=== PATIENT | male | born 1950 | race Caucasian/White ===

== ENCOUNTER 2020-07-17 15:10 | Outpatient (REF) | payer MEDICARE, MEDICAID, SELFPAY | END 2020-07-17 15:11 | disposition home or self-care (01) | LOC: HO.LAB 15:10 | PROVIDERS: Visit Provider Nurse Practitioner Family | DX: R05 Cough (principal); R42 Dizziness and giddiness; Z20.822 Contact with and (suspected) exposure to COVID-19 | CPT/HCPCS: 36415; U0003; U0005 ==

== ENCOUNTER 2021-01-21 11:47 | Outpatient (REF) | payer MEDICARE, MEDICAID, SELFPAY ==
[2021-01-21 13:31] LABS: Alanine Aminotransferase 28 U/L (0-40); Albumin Level 4.3 g/dL (3.5-5.0); Alkaline Phosphatase 80 U/L (39-117); Anion Gap 11 (12-20); Aspartate Amino Transferase 20 U/L (5-37); Bilirubin Total 0.7 mg/dL (0.0-1.0); Blood Urea Nitrogen 13 mg/dL (9-16); Calcium 9.6 mg/dL (8.4-10.2); Carbon Dioxide 26 mmol/L (22-29); Chloride 107 mmol/L (96-108); Estimated Glomerular Filt Rate > 60; Glucose Fasting 96 mg/dL (60-99); Potassium 4.9 mmol/L (3.3-5.1); Sodium 139 mmol/L (135-145); Total Protein 6.6 g/dL (6.5-8.0)
[2021-01-21 13:51] LABS: Prostate Specific Antigen 0.82 ng/mL (<0.05-4.0)
== END 2021-01-21 11:48 | disposition home or self-care (01) ==
LOC: HO.LAB 11:47
PROVIDERS: PCP Internal Medicine; Visit Provider Nurse Practitioner Family
DX: Z13.1 Encounter for screening for diabetes mellitus (principal); Z12.5 Encounter for screening for malignant neoplasm of prostate
CPT/HCPCS: 36415; 80053; 84153

== ENCOUNTER 2021-02-12 09:02 | Outpatient (REF) | payer MEDICARE, MEDICAID, SELFPAY | END 2021-02-12 09:03 | disposition home or self-care (01) | LOC: HO.LAB 09:02 | PROVIDERS: PCP Internal Medicine; Visit Provider Internal Medicine | DX: Z20.822 Contact with and (suspected) exposure to COVID-19 (principal) | CPT/HCPCS: C9803; U0003; U0005 ==

== ENCOUNTER 2021-06-04 21:59 | Emergency (ER) | payer MEDICARE, MEDICAID, SELFPAY ==
--- NOTE | ~2021-06-04 | CT_ITS ---
EXAMINATION: CT HEAD WITHOUT CONTRAST CLINICAL INFORMATION: Fall, hit head COMPARISON: 11/29/2015 TECHNIQUE: Contiguous axial imaging was performed from the skull base to vertex without intravenous administration of contrast. This CT examination was performed using dose optimization techniques as appropriate, variously including the following: *Automated exposure control *Adjustment of mA and/or kV according to patient size (this includes techniques or standardized protocols for targeted exams where dose is matched to indication/reason for exam; i.e. extremities or head) *Use of iterative reconstruction technique DLP: 782 mGy-cm FINDINGS: There is no evidence of acute intracranial hemorrhage or territorial infarction. No abnormal mass effect or midline shift is seen. Gambino to white matter differentiation is well preserved. No extra-axial fluid collections are identified. The lateral and third ventricles remain prominent in size, similar to prior. There is no abnormal attenuation within the brain parenchyma. The osseous structures and soft tissues are normal. The mastoid air cells and visualized portions of the paranasal sinuses are well aerated. CT/CT head/brain wo con IMPRESSION: No new acute intracranial pathology. Prominent lateral and third ventricles again noted, similar to prior and which could represent hydrocephalus.
[2021-06-04 22:11] VITALS: BMI 24.7
[2021-06-04 22:14] VITALS: BP 140/80; PULSE 73; RESP 16; TEMP 36.8; O2SAT 98
--- NOTE | 2021-06-04 23:30 | ED_ITS ---
HPI - Fall General Chief Complaint: Fall Stated Complaint: Fall Time Seen by Provider: 06/04/21 22:49 Source: patient Limitations: no limitations and language barrier (History obtained via [facility], [facility] volunteer assistant) History of Present Illness HPI Narrative: This is a 71-year-old male who was going to take a bath or shower, and had put his left foot in the tub when it slipped out to the side and the patient fell, hitting the back of his head. The patient complains of headache that began in the back of his head and now was toward the front. The headache is now mild. He denies loss of consciousness. He denies nausea vomiting. Denies any neck pain. Denies any numbness or weakness in his arms or legs. Denies any injury, denies any left hip or leg pain. He does have mild pain to his right knee, on which he put an elastic brace. The patient states that he is on a blood thinner but cannot specify which 1 or for what reason Related Data Home Medications Medication Instructions Recorded Confirmed amantadine HCl 100 mg capsule 100 mg PO BID 07/02/20 01/01/21 calcium carbonate 600 mg-vitamin 1 tab PO DAILY 07/02/20 01/01/21 D3 5 mcg (200 unit) tablet memantine 10 mg tablet 10 mg PO BID 07/02/20 01/01/21 quetiapine 25 mg tablet mg PO 07/02/20 01/01/21 sertraline 100 mg tablet 100 mg PO QAM 07/02/20 01/01/21 Previous Rx's Medication Instructions Recorded trazodone 50 mg tablet 50 mg PO BEDTIME PRN 90 Days #90 04/04/20 tab aspirin 81 mg tablet,delayed 81 mg PO DAILY 90 Days #90 tab 07/17/20 release (Adult Aspirin Regimen) docusate sodium 100 mg capsule 100 mg PO DAILY PRN 90 Days #90 cap 07/17/20 tamsulosin 0.4 mg capsule 0.4 mg PO DAILY #90 cap 09/02/20 cyclobenzaprine 10 mg tablet 10 mg PO TID 30 Days #90 tab 02/24/21 levothyroxine 137 mcg tablet 137 mcg PO DAILY 90 Days #90 tab 03/04/21 brimonidine 0.2 % eye drops 1 drp OPHTHALMIC (EYE) Q8H #5 ml 03/06/21 dorzolamide 22.3 mg-timolol 6.8 1 drp OPHTHALMIC (EYE) BID 30 Days 03/06/21 mg/mL eye drops #10 ml latanoprost 0.005 % eye drops 1 drp OPHTHALMIC (EYE) BEDTIME 30 03/06/21 Days #2.5 ml lisinopril 10 mg tablet 10 mg PO DAILY #90 tab 04/25/21 atorvastatin 20 mg tablet 20 mg PO DAILY #90 cap 05/22/21 Allergies Allergy/AdvReac Type Severity Reaction Status Date / Time No Known Allergies Allergy Verified 01/01/21 14:25 [No Known Allergies*] Review of Systems Review of Systems: Yes all other systems are reviewed and are negative Constitutional: Constitutional: Reports as per HPI, Denies fever(s) and Reports headache(s) Eyes: Eyes: Reports as per HPI and Reports no additional eye complaints ENT: Reports system reviewed and no additional complaints, except as documented, Reports as per HPI, Reports headache(s), Denies nasal congestion, Denies nasal discharge and Denies sore throat Cardiovascular: Cardiovascular: Reports as per HPI, Denies chest pain and Denies dyspnea Respiratory: Respiratory: Reports as per HPI, Denies cough and Denies dyspnea Gastrointestinal: Gastrointestinal: Reports as per HPI, Denies abdominal pain, Denies diarrhea and Denies vomiting Genitourinary: Genitourinary: Reports as per HPI, Denies hematuria, Denies dysuria and Denies urinary frequency Musculoskeletal: Musculoskeletal: Reports as per HPI, Denies numbness and Reports other (Right knee pain) Integumentary/Breasts: Skin/Breast: Reports as per HPI and Denies rash Neurologic: Reports as per HPI, Reports headache(s), Denies focal weakness, Denies numbness and Denies Sensory deficit (Neuro) Psychiatric: Psychiatric: Reports no additional psychiatric complaints and Reports as per HPI Endocrine: Endocrine: Reports no additional endocrine complaints and Reports as per HPI Hematologic/Lymphatic: Hematologic/Lymphatic: Reports no additional rudi tologic/lymphatic complaints, Reports as per HPI and Reports other (No peripheral edema) [facility] Past Medical History Medical History (Updated 06/05/21 @ 00:26 by Brenden Coe MD) Cough Dizziness Essential hypertension Glaucoma Hearing loss Insomnia Long-term use of aspirin therapy Screening for diabetes mellitus Screening for prostate cancer Surgical History (Updated 01/01/21 @ 14:54 by ERIN Castillo) History of biopsy History of colonoscopy Family History Family History Father Prostate cancer Mother Chronic mental illness Maternal Aunt Diabetes Hypertension Maternal Uncle Diabetes Hypertension Sister Liver failure Family/Other Chronic mental illness Brother No problems noted. Social History Social History (Updated 01/01/21 @ 14:27 by ERIN Castillo) Alcohol intake: never Patient Tobacco Use Status: Former Tobacco user Advance Directives: No Advance Directives Information Provided: Yes Physical Exam Vital Signs: Vital Signs: Last Vital Signs Temp 98.3 F 06/04/21 22:14 Pulse 98 06/05/21 00:32 Resp 16 06/05/21 00:32 BP 140/92 H 06/05/21 00:32 Pulse Ox 96 06/05/21 00:32 BMI result Body Mass Index 24.7 Const: General: cooperative, no acute distress and alert Orientation/consciousness: patient oriented x3 HENMT: Head: Yes normal to inspection Eyes: General: appearance normal, both eyes and all related structures Eyelids: Yes eyelids normal Conjunctivae: conjunctivae normal Pupils: Equal, round and reactive pupils present Neck: Neck: Yes normal visual inspection and Yes supple Chest: Chest palpation & inspection: normal inspection of the chest Resp: Effort & Inspection: normal respiratory effort Auscultation: clear to auscultation bilaterally Cardio: Rate: regular rate Rhythm: regular rhythm Heart sounds: S1 normal heart sound present, S2 normal heart sound present, no gallops, no murmurs and no rubs GI: Palpation (GI): Soft to palpation, nontender and Other GI palpation findings present (Non-distended) Auscultation: normal bowel sounds Skin: General skin exam: no rashes or lesions noted Neuro: General: patient oriented x3, no focal motor deficits and CN's II-XI intact bilaterally Cranial nerves: Yes Equal, round and reactive pupils present Cognition (Neuro): normal cognition Motor exam (neuro): 5/5 motor strength present throughout Sensory Exam: No Sensory deficit (Neuro) Extrem: Other: Right knee without any evidence of trauma, no effusion, no ecchymosis, no deformity, full range of motion, no point tenderness General: Yes normal to inspection and Yes no pedal edema Psych: Appearance: grossly normal Affect: normal affect MDM - Fall MDM Narrative Medical decision making narrative: Patient with the minor head injury after a fall. Patient is on aspirin, unclear he is on any other blood thinners. CT of the brain/head negative. No neck pain. No other significant injury. Patient is safe for outpatient follow-up, can take acetaminophen for pain. Imaging Data CT scan - head: Radiologist's impression: IMPRESSION: No new acute intracranial pathology. Prominent lateral and third ventricles again noted, similar to prior and which could represent hydrocephalus. Discharge Plan Discharge Clinical Impression: Head injury Patient Disposition: Home, Self-Care Instructions: Head Injury (ED) Additional Instructions: Use acetaminophen for pain as needed. Continue other current medications. Return for any new or worsening symptoms. Follow up with your primary care physician as needed Prescriptions: No Action trazodone 50 mg tablet 50 mg PO BEDTIME PRN (Reason: sleep) 90 Days Qty: 90 RF: 3 aspirin [Adult Aspirin Regimen] 81 mg tablet,delayed release (DR/EC) 81 mg PO DAILY 90 Days Qty: 90 RF: 3 docusate sodium 100 mg capsule 100 mg PO DAILY PRN (Reason: constipation) 90 Days Qty: 90 RF: 3 tamsulosin 0.4 mg capsule 0.4 mg PO DAILY Qty: 90 RF: 0 cyclobenzaprine 10 mg tablet 10 mg PO TID 30 Days Qty: 90 RF: 1 levothyroxine 137 mcg tablet 137 mcg PO DAILY 90 Days Qty: 90 RF: 1 brimonidine 0.2 % drops 1 drp ophthalmic (eye) Q8H Qty: 5 RF: 0 dorzolamide-timolol 22.3-6.8 mg/mL drops 1 drp ophthalmic (eye) BID 30 Days Qty: 10 RF: 1 latanoprost 0.005 % drops 1 drp ophthalmic (eye) BEDTIME 30 Days Qty: 2.5 RF: 0 lisinopril 10 mg tablet 10 mg PO DAILY Qty: 90 RF: 0 atorvastatin 20 mg tablet 20 mg PO DAILY Qty: 90 RF: 3 calcium carbonate-vitamin D3 600 mg(1,500mg) -200 unit tablet 1 tab PO DAILY RF: 0 memantine 10 mg tablet 10 mg PO BID RF: 0 amantadine HCl 100 mg capsule 100 mg PO BID RF: 0 quetiapine 25 mg tablet PO RF: 0 sertraline 100 mg tablet 100 mg PO QAM RF: 0 Interventions: ED Discharge Assessment Last Done: 06/05/21 01:55 Discharge Date/Time: 06/05/21 01:56
[2021-06-05] MEDS: Acetaminophen 325 MG TABLET 650 MG PO
[2021-06-05 00:32] VITALS: BP 140/92; PULSE 98; RESP 16; O2SAT 96
== END 2021-06-05 01:56 | disposition home or self-care (01) ==
PROVIDERS: Emergency Provider Emergency Medicine; PCP Internal Medicine
DX: S09.90XA Unspecified injury of head, initial encounter (principal); W18.2XXA Fall in (into) shower or empty bathtub, initial encounter; Y93.E1 Activity, personal bathing and showering; Y92.012 Bathroom of single-family (private) house as the place of occurrence of the external cause; Y99.9 Unspecified external cause status; Z79.82 Long term (current) use of aspirin; I10 Essential (primary) hypertension
CPT/HCPCS: 70450; 99284

== ENCOUNTER 2022-05-07 15:37 | Outpatient (REF) | payer MEDICARE, MEDICAID, SELFPAY ==
--- NOTE | ~2022-05-07 | XR_ITS ---
EXAMINATION: XR KNEE, RIGHT CLINICAL INFORMATION: Right knee pain COMPARISON: None TECHNIQUE: AP and lateral of the right knee. FINDINGS: Small marginal osteophytes are evident at the patella and medial compartment. Joint spaces appear relatively well-preserved. No fracture or malalignment. No joint effusion. Enthesopathic spurring is present at the patellar tendon insertion on the tibial tuberosity. XR/XR knee RT 2V IMPRESSION: Minimal medial and patellofemoral compartment osteoarthritis. No acute osseous findings.
[2022-05-07 18:10] LABS: Alanine Aminotransferase 15 U/L (0-40); Albumin Level 4.5 g/dL (3.5-5.0); Alkaline Phosphatase 85 U/L (39-117); Anion Gap 9 (12-20); Aspartate Amino Transferase 19 U/L (5-37); Bilirubin Total 1.1 mg/dL (0.0-1.0); Blood Urea Nitrogen 13 mg/dL (9-16); Calcium 9.9 mg/dL (8.4-10.2); Carbon Dioxide 29 mmol/L (22-29); Chloride 103 mmol/L (96-108); Cholesterol 224 mg/dL; Estimated Glomerular Filt Rate > 60; Glucose Fasting 75 mg/dL (60-99); HDL Cholesterol 41 mg/dL; LDL Cholesterol Calculated 163 mg/dl; Potassium 4.6 mmol/L (3.3-5.1); Sodium 136 mmol/L (135-145); Thyroid Stimulating Hormone 0.75 uIU/mL (0.32-4.0); Total Protein 7.2 g/dL (6.5-8.0); Triglycerides 101 mg/dL
== END 2022-05-07 15:38 | disposition home or self-care (01) ==
LOC: HO.LAB 15:37
PROVIDERS: PCP Internal Medicine; Visit Provider Internal Medicine
DX: M25.561 Pain in right knee (principal); E03.9 Hypothyroidism, unspecified; E78.5 Hyperlipidemia, unspecified; I10 Essential (primary) hypertension
CPT/HCPCS: 36415; 73560; 80053; 80061; 84443

== ENCOUNTER 2022-10-16 09:23 | Outpatient (REF) | payer OTHER, SELFPAY ==
--- NOTE | ~2022-10-16 | FL_ITS ---
EXAMINATION: FL BARIUM SWALLOW CLINICAL INFORMATION: Dysphagia. COMPARISON: None available. TECHNIQUE: Barium swallow examination was performed using fluoroscopic evaluation in addition to multiple fluoroscopic spot views. The patient is imaged both upright and prone and using both thick and thin sulfate along with effervescent granules. Fluoroscopy Time: 1.9 minutes DAP: 9.626 Gycm2 Images: 44 FINDINGS: Following oral administration of thick barium and barium-coated turkey in the upright view, there is normal propagation of the bolus from the oral cavity through the pharynx, esophagus into the stomach without any evidence of obstruction, narrowing or stricture. No laryngeal penetration or aspiration is seen. On placing the patient prone lying and oral administration of thin barium, there is good distention of the entire esophagus without intraluminal filling defect or extrinsic compression. No obstruction is seen. Please note the patient has a significantly large volume of bolus during every oral intake. FL/FL barium swallow IMPRESSION: Unremarkable barium swallow in the upright and lying positions.
== END 2022-10-16 09:24 | disposition home or self-care (01) ==
LOC: HO.XRAY 09:23
PROVIDERS: PCP Internal Medicine; Visit Provider Internal Medicine
DX: R13.10 Dysphagia, unspecified (principal)
CPT/HCPCS: 74220

== ENCOUNTER 2022-12-22 13:58 | Outpatient (AMB) | payer MEDICARE, SELFPAY ==
[2022-12-22 14:00] VITALS: BP 98/80; BMI 26.2
--- NOTE | 2022-12-22 14:00 | A.OFFPC_ITS ---
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 Required: No Accompanied by: Sister Allergies No Known Allergies [No Known Allergies*] Allergy (Verified 12/22/22 14:06) Medication List - Last Reconciled 12/22/22 by Dea Serrano MD aspirin (Adult Aspirin Regimen) 81 mg PO DAILY 90 days atorvastatin 20 mg PO DAILY back brace As directed brimonidine 0.2% 1 drp ophthalmic (eye) Q8H cane As directed cyclobenzaprine 10 mg PO TID PRN 4 days docusate sodium 100 mg PO DAILY PRN 90 days dorzolamide-timolol 22.3-6.8 mg/mL 1 drp ophthalmic (eye) BID 30 days Knee brace As directed latanoprost 0.005% 1 drp ophthalmic (eye) QPM levothyroxine 137 mcg PO DAILY 90 days lisinopril 5 mg PO DAILY 90 days memantine 10 mg PO BID 90 days quetiapine mg PO sertraline 100 mg PO QAM 90 days tamsulosin 0.4 mg PO DAILY trazodone 100 mg PO BEDTIME vitamin E (dl, acetate) 360 mg PO DAILY Tobacco use date assessed: 08/31/22 Fall risk assessment: No Falls in past year Last assessed Fall Risk: 12/22/22 Dental Screening Dental Screen Date: 12/22/22 Did you have a dental visit in the last 12 months?: No Did you have a dental problem in the last 6 months where you did not have access to dental care?: No Was dental information given to patient?: Patient has dentist HPI HPI Comments 2 History of Present Illness Details This is a 72-year-old male with hypertension, hypothyroidism, mild recurrent major depression and dementia that comes accompanied by sister which is the hose tester for follow-up on his conditions. Blood pressure has been running low and I will discontinue lisinopril. TSH will be repeated. Dep ression stable with medications. Dementia has been with no significant progression. Still bathe himself and to some basic activities of daily living. Complains of difficulty swallowing solids and barium swallow was normal. Sister said that she thinks he had an endoscopy about 5-6 years ago due to this matter. I will refer him to Gastroenterology. He also has bilateral ear discomfort and tinnitus and will be referred to ENT. [facility] Medical History (Updated 12/22/22 @ 14:17 by Dea Serrano MD) Cough Dizziness Essential hypertension Glaucoma Hearing loss Insomnia Long-term use of aspirin therapy Screening for diabetes mellitus Screening for prostate cancer Surgical History History of biopsy History of colonoscopy Family History Father Prostate cancer Mother Chronic mental illness Osteoporosis Maternal Aunt Diabetes Hypertension Maternal Uncle Diabetes Hypertension Sister Liver failure Family/Other Chronic mental illness Brother No problems noted. Social History Housing: Apartment Alcohol intake: never Patient Tobacco Use Status: Former Tobacco user e-Cigarette/Vaping Use: Never Used Second Hand Smoke Exposure: No service: No Current occupational status: disabled Cognitive needs: No Hearing needs: No Vision needs: No Questionnaire Thrive Questionnaire Date Thrive assessed: 08/31/22 MURRAY-7 AMB Questionnaire MURRAY-7 Date MURRAY - 7 assessed: 08/31/22 Source: Developed by Drs. Hank Craft, Mckayla Burgos, Martinez Sena and colleagues, with an educational taco from [employer]. Review of Systems Const All systems reviewed & are unremarkable except as noted in HPI and below Eyes Reports no additional complaints, Denies change in vision and Denies other visual disturbances Card Denies chest pain at rest, Denies chest pain with activity, Denies edema, Denies irregular heart rhythm, Denies claudication, Denies dyspnea, Denies dyspnea on exertion, Denies orthopnea, Denies paroxysmal nocturnal dyspnea and Denies slow heart rate Resp Denies cough, Denies dyspnea and Denies dyspnea on exertion GI Denies abdominal pain, Denies change in bowel habits, Denies excessive flatus, Denies nausea and Denies vomiting Denies urinary hesitancy, Denies urinary incontinence and Denies urinary urgency Musc Denies abnormal gait, Denies atrophy, Denies deformity and Denies limited range of motion Skin/Breast Denies bleeding lesions, Denies changing lesions and Denies rash Neuro Denies abnormal gait and Denies lack of coordination Physical exam (Primary Care) Vital Signs: Last Vital Signs BP 98/80 12/22/22 14:00 BMI result Body Mass Index 26.2 Tobacco/Smoking Status: Tobacco use Status Tobacco use date assessed 08/31/22 12/22/22 14:04 Patient Tobacco Use Status Former Tobacco user 12/22/22 14:04 e-Cigarette/Vaping Use Never Used 12/22/22 14:04 Thrive Assessment: Date of Thrive Assessment Date Thrive assessed 08/31/22 12/22/22 14:04 HENMT Ears: external ears normal Eyes General: appearance normal, both eyes and all related structures Eyelids: Yes eyelids normal Conjunctivae: conjunctivae normal Neck Neck: Yes normal visual inspection and Yes supple Resp Effort & Inspection: normal respiratory effort Auscultation: clear to auscultation bilaterally Cardio Jugular venous distension: no JVD Rate: regular rate Rhythm: regular rhythm Heart sounds: S1 normal heart sound present and S2 normal heart sound present Neuro General: no focal motor deficits Extrem General: Yes full ROM Assessment and Plan Assessment & Plan (1) Mild recurrent major depression: Code(s): F33.0 - Major depressive disorder, recurrent, mild Plan: Continue SSRIs. (2) Dementia: Code(s): F03.90 - Unspecified dementia, unspecified severity, without behavioral disturbance, psychotic disturbance, mood disturbance, and anxiety Plan: Continue memantine. (3) Essential hypertension: Code(s): I10 - Essential (primary) hypertension Plan: Discontinue lisinopril. (4) Hypothyroidism: Code(s): E03.9 - Hypothyroidism, unspecified Plan: Continue levothyroxine. Monitor TSH. (5) Dysphagia: Code(s): R13.10 - Dysphagia, unspecified Plan: Referred to Gastroenterology Orders: Orders Comprehensive [place]. Panel Fast Today F03.90 - Unspecified dementia, unspecified severity, without behavioral disturbance, psychotic disturbance, mood disturbance, and anxiety Lipid Panel Today E78.5 - Hyperlipidemia, unspecified Thyroid Stimulating Hormone Today E03.9 - Hypothyroidism, unspecified Vitamin D 25-OH Total Today E55.9 - Vitamin D deficiency, unspecified Complete Blood Count Auto Diff Today F03.90 - Unspecified dementia, unspecified severity, without behavioral disturbance, psychotic disturbance, mood disturbance, and anxiety Referrals Gastroenterology Referral R13.10 - Dysphagia, unspecified Ear/Nose/Throat Referral H92.09 - Otalgia, unspecified ear Medications: Discontinued lisinopril Discontinued Reason: Patient Completed Course 5 mg PO DAILY 90 days 90 tabs 1RF I10 - Essential (primary) hypertension Coding Level of Care Code Est Pt Level 4 (57864) Diagnoses 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 Dementia F03.90 Essential hypertension I10 Hypothyroidism E03.9 Dysphagia R13.10 Time Spent (min) 23
== END 2022-12-22 14:17 | disposition home or self-care (01) ==
PROVIDERS: Visit Provider Internal Medicine
DX: F33.0 Major depressive disorder, recurrent, mild (principal); F03.90 Unspecified dementia, unspecified severity, without behavioral disturbance, psychotic disturbance, mood disturbance, and anxiety; I10 Essential (primary) hypertension; E03.9 Hypothyroidism, unspecified; R13.10 Dysphagia, unspecified
CPT/HCPCS: 99214

== ENCOUNTER 2023-02-15 15:25 | Outpatient (AMB) | payer MEDICARE, SELFPAY ==
--- NOTE | 2023-02-15 15:34 | A.OFFVIS_ITS ---
Intake Vital Signs 02/15/23 15:35 Height 5 ft 2 in Weight 142 lb BMI 26.0 BP 109/73 Blood Pressure Location Lt brachial Position Sitting Intake Visit Reasons: Dysphagia Intake Note: Patient presents to in office visit today as a new patient for dysphagia. CC: Reports he was having discomfort from his throat feeling like having something stuck in his throat. Onset of symptoms about a month ago. Patient had a similar symptoms in 2018 and he was sent to take therapy and the problem resolved. Patient also reports occasional constipation and states he takes a pill for it that helps him go to the BR. 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 Patient is accompanied by his sister. Patient's sister speaks for him for the most part, however patient is able to express when questioned how he feels. Patient reports that his symptoms of dysphagia have improved. Patient reports that he is eating large meals and for the most part patient's sister states that he is eating slowly. Patient denies any symptoms of choking. Sister reports that in 2018 he had upper endoscopy, was placed on medication and was feeling better. In October patient had barium swallow, normal exam no acid reflux no strictures. Normal propagation of food during the study. [facility] Medical History Hearing loss Screening for prostate cancer Screening for diabetes mellitus Cough Dizziness Long-term use of aspirin therapy Glaucoma Insomnia Essential hypertension Surgical History History of biopsy History of colonoscopy Family History Father Prostate cancer Mother Chronic mental illness Osteoporosis Maternal Aunt Diabetes Hypertension Maternal Uncle Diabetes Hypertension Sister Liver failure Family/Other Chronic mental illness Brother No problems noted. Social History Housing: Apartment Alcohol intake: former Patient Tobacco Use Status: Former Tobacco user Smoked in Last 30 Days: No e-Cigarette/Vaping Use: Never Used Second Hand Smoke Exposure: No Use of substances other than those prescribed or required for medical reasons: No Advance Directives: No Advance Directives Information Provided: Yes service: No Current occupational status: disabled Cognitive needs: No Hearing needs: No Vision needs: No Review of Systems Const Denies weight gain and Denies weight loss ENT Reports no additional complaints, Reports dysphagia (Improved in the last 2 weeks) and Denies odynophagia Card Reports no additional complaints Resp Reports no additional complaints GI Denies abdominal pain, Denies belching, Denies melena, Denies bloating, Denies change in bowel habits, Reports dysphagia (Improved in the last 2 weeks), Denies excessive flatus, Denies dyspepsia, Denies heartburn, Denies diarrhea, Denies loose stools, Denies nausea, Denies odynophagia and Denies vomiting Reports no additional complaints Musc Reports no additional complaints Neuro Reports no additional complaints Psych Reports no additional complaints Endo Reports no additional complaints Physical Exam Vital Signs: Last Vital Signs BP 109/73 02/15/23 15:35 BMI result Body Mass Index 26.0 Const General: healthy appearing, no acute distress and well developed Nutritional Appearance: well nourished Orientation/consciousness: oriented to person and oriented to place HEENT Head: Yes normal to inspection, Yes normocephalic and Yes atraumatic Face and sinus: Yes normal facial exam Mouth: Normal oral and palatal mucosa present Throat: Yes posterior oropharynx normal, Yes tonsils normal and Yes uvula midline Eyes General: appearance normal, both eyes and all related structures Neck Neck: Yes normal visual inspection, Yes full ROM and Yes trachea midline Thyroid: Thyroid normal Resp Effort & Inspection: normal respiratory effort, able to speak in complete sentences, no tracheal deviation and symmetric chest movement Auscultation: clear to auscultation bilaterally Cardio Rate: regular rate Heart sounds: S1 normal heart sound present and S2 normal heart sound present GI Inspection: Yes normal to inspection and No distended Palpation (GI): Soft to palpation, not firm, nontender and No hepatosplenomegaly present Auscultation: Hypoactive bowel sounds present General: Yes no CVA tenderness Back/Spine/Pelvis Back: no CVA tenderness Skin General skin exam: elasticity normal, turgor normal and dry skin Neuro General: oriented to person and oriented to place Psych Appearance: grossly normal Mental Status: mental status grossly normal Results Reviewed Results Reviewed: BARIUM SWALLOW 10/16/2022 FINDINGS: Following oral administration of thick barium and barium-coated turkey in the upright view, there is normal propagation of the bolus from the oral cavity through the pharynx, esophagus into the stomach without any evidence of obstruction, narrowing or stricture. No laryngeal penetration or aspiration is seen. On placing the patient prone lying and oral administration of thin barium, there is good distention of the entire esophagus without intraluminal filling defect or extrinsic compression. No obstruction is seen. Please note the patient has a significantly large volume of bolus during every oral intake. FL/FL barium swallow IMPRESSION: Unremarkable barium swallow in the upright and lying positions. Assessment & Plan Assessment & Plan (1) Dysphagia: Code(s): R13.10 - Dysphagia, unspecified Qualifiers: Dysphagia type: pharyngoesophageal phase Qualified Code(s): R13.14 - Dysphagia, pharyngoesophageal phase Plan: Will start patient on PPI. Patient reports that his symptoms improved right now. Patient is to eat smaller amounts. Discussed with patient and his sister to avoid dietary triggers in late night snacking. Staying upright for minimum 3 hours after meals discussed with patient. (2) Constipation: Code(s): K59.00 - Constipation, unspecified Qualifiers: Constipation type: slow transit constipation Qualified Code(s): K59.01 - Slow transit constipation Plan: Start Senokot every day. Increase fluid intake and activity to promote better bowel motility. I will see patient in 4 weeks to discuss going for possible upper endoscopy. If patient symptoms will improved we my hold off on that. Both patient and his sister are agreeable to plan of care and verbalizes understanding of instructions. They were given the opportunity to ask questions and all questions answered. Thank you for allowing me to participate in his care Medications: New omeprazole 20 mg PO DAILY 30 caps 3RF K21.9 - Gastro-esophageal reflux disease without esophagitis sennosides (Natural Senna Laxative) 8.6 mg PO BEDTIME 90 tabs 3RF constipation K59.00 - Constipation, unspecified Coding Level of Care Code New Pt Level 3 (01874) Diagnoses Pharyngoesophageal dysphagia R13.14 Dysphagia type: pharyngoesophageal phase Slow transit constipation K59.01 Constipation type: slow transit constipation Time Spent (min) 40 Comment 30 minutes spent with patient and additional 10 minutes spent reviewing his records
[2023-02-15 15:35] VITALS: BP 109/73; BMI 26.0
== END 2023-02-15 16:16 | disposition home or self-care (01) ==
PROVIDERS: PCP Internal Medicine; Visit Provider Nurse Practitioner Family
DX: R13.14 Dysphagia, pharyngoesophageal phase (principal); K59.01 Slow transit constipation
CPT/HCPCS: 99203

== ENCOUNTER → 2023-02-15 15:25 | Outpatient (BNVA) | payer MEDICARE, SELFPAY | PROVIDERS: PCP Internal Medicine; Visit Provider Nurse Practitioner Family ==

== ENCOUNTER 2023-02-18 11:37 | Emergency (ER) | payer MEDICARE, SELFPAY ==
--- NOTE | ~2023-02-18 | CT_ITS ---
Examination: CT brain and CT cervical spine without IV contrast. CLINICAL INDICATION: Fall and head strike. TECHNIQUE COMPARISON: CT brain 06/05/2021.: 5 mm thin axial and reformatted 2 mm thin sagittal coronal images of brain brain were obtained. Subsequently axial 3 mm thin and reformatted 2 mm thin sagittal and coronal images of cervical spine were obtained. DLP 1200. This CT examination was performed using dose optimization technique as appropriate, variously including the following: Automated exposure control Adjustment of MA and/or KV according to patient size(this includes techniques or standardized protocols for targeted exams where dose is matched to indication/reason for exam; extremities or head. Use of iterative reconstruction techniques. FINDINGS: BRAIN: There is no acute intra-axial, extra-axial bleed, masses or midline shift. There is no acute infarction in evolution. There is no edema. The holland to white matter differentiation is maintained normal. The lateral ventricles are symmetrical but significantly enlarged. There is mild enlargement of third and fourth ventricle as well. The holland to white matter differentiation is maintained normal. Bone windows reveal no calvarial abnormality. There is no scalp soft tissue abnormality. Bilateral paranasal sinuses and mastoid air cells are well-aerated. CERVICAL SPINE: There is mild straightening of cervical lordosis. The vertebral heights and alignment is normal. There is loss of C3-C4, C4-C5, C5-C6 and C7-T1 disc heights. There is C6 and C7 vertebral body fusion. The craniovertebral junction and C1-C2 alignment is normal. There is bilateral mild uncovertebral hypertrophic changes C4-C5, C5-C6 and left C3-C4 disc levels resulting in mild bilateral narrowing of neural foramina. No visible acute fracture, dislocation or subluxation seen. No aggressive lytic or sclerotic process seen. The paravertebral soft tissues are normal. CT/CT cervical spine wo IV con IMPRESSION: 1. No acute intracranial process seen. Enlarged ventricles question normal pressure hydrocephalus. Similar findings were seen on the previous CT brain 06/05/2021 2. There is no acute fracture, dislocation or subluxation seen in cervical spine. There are degenerative disc changes C3-C4, C4-C5, C5-C6 and C7-T1 disc levels with C6 and C7 vertebral body fusion.
[2023-02-18 11:49] VITALS: BP 131/88; BP 136/84; PULSE 66; PULSE 70; RESP 18; O2SAT 100; O2SAT 98; BMI 24.1
--- NOTE | 2023-02-18 11:51 | ED_ITS ---
HPI - Fall General Chief Complaint: Fall Stated Complaint: FALL, HIT HEAD, +CCOLLAR PER EMS Time Seen by Provider: 02/18/23 11:51 Source: patient, family ( sister), EMS, RN notes reviewed, old records reviewed and hotel manager Mode of arrival: EMS Limitations: no limitations History of Present Illness HPI Narrative: 72-year-old male PMHx of hypothyroid, dementia, glaucoma, HTN, MDD presents to the ED today via EMS in cervical collar s/p slip and fall in shower with head strike. Patient reports standing while in the shower, holding onto his shower chair when he slipped, causing him to hit his head on the side of the bathtub. Denies LOC. Not on AC. States that his sister heard him fall and immediately came to help him. He was able to stand up and ambulate after the fall. He currently reports a headache, no other symptoms. Denies vision changes, neck pain, back pain, extremity numbness/ tingling /weakness, bowel or bladder incontinence /retention, saddle anesthesia. Related Data Home Medications Medication Instructions Recorded Confirmed quetiapine 25 mg tablet mg PO 07/02/20 12/22/22 trazodone 100 mg tablet 100 mg PO BEDTIME 04/01/22 12/22/22 latanoprost 0.005 % eye drops 1 drp ophthalmic (eye) QPM 08/31/22 12/22/22 tamsulosin 0.4 mg capsule 0.4 mg PO DAILY 08/31/22 12/22/22 vitamin E (dl, acetate) 180 mg 360 mg PO DAILY 08/31/22 12/22/22 (400 unit) capsule Previous Rx's Medication Instructions Recorded memantine 10 mg tablet 10 mg PO BID 90 days #180 tabs 04/02/22 sertraline 100 mg tablet 100 mg PO QAM 90 days #90 tabs 04/02/22 levothyroxine 137 mcg tablet 137 mcg PO DAILY 90 days #90 tabs 07/25/22 brimonidine 0.2 % eye drops 1 drp ophthalmic (eye) Q8H #5 mL 08/13/22 dorzolamide 22.3 mg-timolol 6.8 1 drp ophthalmic (eye) BID 30 days 08/13/22 mg/mL eye drops #10 mL aspirin 81 mg tablet,delayed 81 mg PO DAILY 90 days #90 tabs 05/10/23 release (Adult Aspirin Regimen) atorvastatin 20 mg tablet 20 mg PO DAILY #90 caps 10/14/22 cyclobenzaprine 10 mg tablet 10 mg PO TID PRN muscle spasm 4 10/14/22 days #12 tabs docusate sodium 100 mg capsule 100 mg PO DAILY PRN constipation 10/14/22 90 days #90 caps Knee brace #1 ea 10/22/22 back brace #1 ea 01/06/23 cane #1 ea 01/06/23 Shower Chair #1 ea 01/19/23 omeprazole 20 mg capsule,delayed 20 mg PO DAILY #30 caps 02/15/23 release sennosides 8.6 mg tablet (Natural 8.6 mg PO BEDTIME constipation #90 02/15/23 Senna Laxative) tabs Allergies Allergy/AdvReac Type Severity Reaction Status Date / Time No Known Allergies Allergy Verified 02/15/23 15:40 [No Known Allergies*] Review of Systems 2 Review of Systems: Constitutional: No fever, No chills, No fatigue, No malaise ENT/Mouth: No ear pain, No hearing loss, No nasal congestion Eyes: No eye pain, No swelling, No redness, No vision changes, No foreign body, No discharge Cardio: No chest pain, No palpitations, No dyspnea on exertion, No orthopnea, No edema Respiratory: No SOB, No cough, No sputum, No wheezing, No dyspnea, No hemoptysis GI: No nausea, No vomiting, No hematemesis, No abdominal pain, No diarrhea, No constipation, No hematochezia, No melena : No irregular bleeding, No dysuria, No frequency, No urgency, No urinary incontinence or retention MSK: No back pain, No neck pain, No joint pain, No myalgias Skin: No skin lesions, No rashes Neuro: No weakness, No numbness, No paresthesias, No LOC, No dizziness, + headache All other systems reviewed and are negative. [facility] Past Medical History Attestation statement: The following information was validated with the patient. Source: old records reviewed and nursing notes reviewed Medical History Hearing loss Screening for prostate cancer Screening for diabetes mellitus Cough Dizziness Long-term use of aspirin therapy Glaucoma Insomnia Essential hypertension Surgical History History of biopsy History of colonoscopy Family History Family History Father Prostate cancer Mother Chronic mental illness Osteoporosis Maternal Aunt Diabetes Hypertension Maternal Uncle Diabetes Hypertension Sister Liver failure Family/Other Chronic mental illness Brother No problems noted. Social History Social History Housing: Apartment Alcohol intake: former Patient Tobacco Use Status: Former Tobacco user Smoked in Last 30 Days: No e-Cigarette/Vaping Use: Never Used Second Hand Smoke Exposure: No Use of substances other than those prescribed or required for medical reasons: No Advance Directives: No Advance Directives Information Provided: Yes service: No Current occupational status: disabled Cognitive needs: No Hearing needs: No Vision needs: No Physical Exam 2 Vital Signs: Vital Signs: Last Vital Signs Pulse 70 02/18/23 16:04 Resp 18 02/18/23 16:04 BP 176/98 H 02/18/23 16:04 Pulse Ox 99 02/18/23 16:04 O2 Del Method Room Air 02/18/23 16:04 BMI result Body Mass Index 24.1 Vital signs stable. General: Nontoxic appearing. NAD. Cervical collar in place. Skin: Warm and dry. No rashes or lesions. Head: Normocephalic, atraumatic. EENT: PERRLA. EOM intact. Moist mucous membranes. Controlling secretions, speaking in full sentences. Neck: Supple without LAD. Normal ROM. Trachea midline. Cardiac: Chest wall symmetric. RRR. S1 and S1 appreciated. No MRG. No JVD. Lungs: CTA bilaterally. No rales, rhonchi, or wheezes. Normal respiratory effort without accessory muscle use. Abdomen: No visible lesions or scars. Soft, non-tender, non-distended. No rebound tenderness or guarding. Normoactive BS x4. Spine: No midline spinous tenderness. No deformity or step off. Ext: Upper and lower extremities atraumatic. Full ROM throughout. Capillary refill <2 seconds in all extremities. Pulses 2+ equal b/l. No edema, cyanosis, or clubbing. Neuro: Alert and oriented x3. Normal speech. CN 2-12 grossly intact. Strength 5/5 intact throughout. Sensation intact to light touch. NV intact distally. Normal [id number], [id number]. Reflexes 2+ bilaterally. Ambulating with steady gait. Psych: Appropriate mood and affect. Responds appropriately to questions. Course Course Course Narrative: 1320-- EKG showing sinus bradycardia at 58 ppm, QT 368, no acute ischemic changes, normal EKG when compared to priors. CBC without leukocytosis or anemia. Chemistry without acute electrolyte abnormality requiring intervention. TSH elevated secondary to patient's hypothyroidism > Likely contributing to patient's intermittent asymptomatic bradycardia. CT head and C-spine pending. 1617-- CT head/brain without intracranial pathology. CT cervical-spine without acute fracture. Patient's vital signs are still stable. On re-evaluation patient feels fine and has no complaints. I discussed patient's labs and imaging results along with need for follow-up regarding high TSH. Advised patient to follow-up with his PCP as his medications may need to be adjusted. Used shared decision- making to determine patient's disposition. At this time I feel comfortable discharging patient home with his sister. All questions answered. discussed strict return precautions. Stable for discharge. Medical Decision Making Medical Decision Making MDM Narrative: 72-year-old male PMHx of hypothyroid, dementia, glaucoma, HTN, MDD presents to the ED today via EMS in cervical s/p slip and fall in shower with head strike. Vital signs stable, nontoxic appearing, in no acute distress. Cervical collar in place. PERRL. No midline spinous or paraspinous tenderness, no deformity or step-off. ROM intact. Lungs CTA b/l. Clinical concern for mechanical fall vs muscle sprain/ strain vs fracture vs ICH vs concussion. Unlikely CVA/TIA, cervical dissection, cerebellar stroke, rhabdomyolysis, threat to limb, compartment syndrome, ACS, pneumothorax. Plan: labs, imaging Differential Diagnosis Differential Diagnoses: The differential diagnosis associated with the presentation includes Clinical concern for mechanical fall vs muscle sprain/ strain vs fracture vs ICH vs concussion. Unikely CVA/TIA, cervical dissection, cerebellar stroke, rhabdomyolysis, threat to limb, compartment syndrome, ACS. Admission/Observation Consideration of admission/observation: Escalation of care including admission/observation considered In this 72-year-old patient s/p slip and fall with head strike admission was considered. Lab Data MDM Lab Attestation statement: I reviewed the patient's lab results. See above course narrative. 02/18/23 12:15 02/18/23 12:15 Labs: Lab Results 02/18/23 Range/Units 12:15 WBC 3.9 L (4.8-10.8) X10*3/uL RBC 5.08 (4.60-5.80) X10*6/uL Hgb 14.7 (14.0-18.0) g/dl Hct 43.3 (42.0-52.0) % MCV 85.2 (80.0-98.0) fL MCH 28.9 (27.0-33.0) pg MCHC 33.9 (31.0-36.0) g/dl RDW 12.9 (11.0-16.0) % Plt Count 245 (160-400) X10*3/uL MPV 9.7 (9.4-12.4) fL Immature Gran % (Auto) 0.3 (0.0-0.4) % Neut % (Auto) 56.2 (45-73) % Lymph % (Auto) 23.3 (20-40) % [place] % (Auto) 14.9 H (2-11) % Eos % (Auto) 3.8 (0-4) % Baso % (Auto) 1.5 (0-2) % Lymph # (Auto) 0.9 L (1.2-4.9) X10*3/uL [place] # (Auto) 0.6 (0.1-1.2) X10*3/uL Eos # (Auto) 0.2 (0.0-0.4) X10*3/uL Baso # (Auto) 0.1 (0.0-0.2) X10*3/uL Abs Immat Gran (auto) 0.01 (0.00-0.03) X10*3/uL Absolute Neuts (auto) 2.2 (2.0-8.3) x10*3/uL Absolute Nucleated RBC 0.000 (0.0-0.012) X10*3/uL Nucleated RBC % (auto) 0.0 (0.0-0.2) /100WBC Sodium 140 (135-145) mmol/L Potassium 4.1 (3.3-5.1) mmol/L Chloride 110 H (96-108) mmol/L Carbon Dioxide 25 (22-29) mmol/L Anion Gap 9 L (12-20) BUN 16 (9-16) mg/dL Creatinine 0.73 (0.5-1.4) mg/dL Estim Creat Clear Calc 81.9 Estimated GFR > 60 Random Glucose 78 (60-115) mg/dL Calcium 9.5 (8.4-10.2) mg/dL Magnesium 1.8 (1.6-2.6) mg/dL Total Bilirubin 0.7 (0.0-1.0) mg/dL AST 20 (5-37) U/L ALT 13 (0-40) U/L Alkaline Phosphatase 78 (39-117) U/L Total Protein 6.8 (6.5-8.0) g/dL Albumin 4.1 (3.5-5.0) g/dL TSH 7.20 H (0.32-4.0) uIU/mL Free T4 0.72 (0.71-1.85) ng/dL ABG Data ABG Results: Not indicated. Independent Interpretation I performed an independent interpretation of an: EKG Interpretation: EKG showing sinus bradycardia at a rate of 58 BPM, normal QT interval, no ischemic changes, no abnormalities when compared to previous EKG. CT head/brain without acute bleed, agree with radiologist's interpretation. CT c spine without fracture, agree with radiologist's interpretation. Radiology Impression Discussion of test interpretation with radiology: I have reviewed the radiologist's reading. Radiologist Impression: CT head/ cervical spine wo IV con IMPRESSION: 1. No acute intracranial process seen. Enlarged ventricles question normal pressure hydrocephalus. Similar findings were seen on the previous CT brain 06/05/2021 2. There is no acute fracture, dislocation or subluxation seen in cervical spine. There are degenerative disc changes C3-C4, C4-C5, C5-C6 and C7-T1 disc levels with C6 and C7 vertebral body fusion Independent Historian Clinical information obtained from an independent historian. History obtained from or confirmed by: Other (Sister) External Record Review External record reviewed: Inpatient record Prescription Management I considered prescription management with: Pain Medication Chronic Conditions Patient?s care impacted by: Hypertension Critical Care Time Critical Care Time Critical Care Time: No Discharge Plan Discharge Clinical Impression: Accident due to mechanical fall without injury Patient Disposition: Home, Self-Care Instructions: Fall Prevention for Older Adults (ED) Additional Instructions: Your labs were reassuring. The image of your head and neck did not show acute fracture or bleed. Your thyroid labs were elevated. This correlates with your history of hypothyroidism and can contribute to slow heart rate. Please follow-up with your primary care provider for possible medication adjustments. Continue taking medications as prescribed, do not miss any doses. You can take Tylenol and Motrin as needed for headache. Get lots of rest. Return to the emergency department if symptoms persist or worsen. Prescriptions: No Action levothyroxine 137 mcg tablet 137 mcg PO DAILY 90 Days Qty: 90 1RF brimonidine 0.2 % drops 1 drp ophthalmic (eye) Q8H Qty: 5 0RF dorzolamide-timolol 22.3-6.8 mg/mL drops 1 drp ophthalmic (eye) BID 30 Days Qty: 10 1RF aspirin [Adult Aspirin Regimen] 81 mg tablet,delayed release (DR/EC) 81 mg PO DAILY 90 Days Qty: 90 3RF atorvastatin 20 mg tablet 20 mg PO DAILY Qty: 90 3RF docusate sodium 100 mg capsule 100 mg PO DAILY PRN (Reason: constipation) 90 Days Qty: 90 3RF cyclobenzaprine 10 mg tablet 10 mg PO TID PRN (Reason: muscle spasm) 4 Days Qty: 12 0RF (DME) Knee brace Misc See Rx Instructions .Route Qty: 1 0RF Rx Instructions: As directed (DME) back brace Misc See Rx Instructions .Route Qty: 1 0RF Rx Instructions: As directed (DME) cane Device See Rx Instructions .Route Qty: 1 0RF Rx Instructions: As directed (DME) Shower Chair Misc See Rx Instructions .Route Qty: 1 0RF Rx Instructions: As directed quetiapine 25 mg tablet PO latanoprost 0.005 % drops 1 drp ophthalmic (eye) QPM tamsulosin 0.4 mg capsule 0.4 mg PO DAILY vitamin E (dl, acetate) 180 mg (400 unit) capsule 360 mg PO DAILY trazodone 100 mg tablet 100 mg PO BEDTIME memantine 10 mg tablet 10 mg PO BID 90 Days Qty: 180 1RF sertraline 100 mg tablet 100 mg PO QAM 90 Days Qty: 90 1RF omeprazole 20 mg capsule,delayed release(DR/EC) 20 mg PO DAILY Qty: 30 3RF sennosides [Natural Senna Laxative] 8.6 mg tablet 8.6 mg PO BEDTIME Qty: 90 3RF Referrals: [facility] [place] Family Medicine [Provider Group] Interventions: ED Discharge Assessment Last Done: 02/18/23 16:28 Discharge Date/Time: 02/18/23 16:29
--- NOTE | 2023-02-18 11:59 | ECG_ITS ---
Test Reason : FALL Blood Pressure : / mmHG Vent. Rate : 058 BPM Atrial Rate : 058 BPM P-R Int : 144 ms QRS Dur : 090 ms QT Int : 368 ms P-R-T Axes : 023 -19 003 degrees QTc Int : 361 ms Sinus bradycardia Otherwise normal ECG When compared with ECG of 29-SEP-2013 16:45, No significant change was found Referred By: Lotus Rangel Electronically Signed By:JEFFERSON CALDERA
[2023-02-18 12:23] LABS: MANUAL DIFF FLAG NO
[2023-02-18 12:25] LABS: Basophils Absolute Auto 0.1 X10*3/uL (0.0-0.2); Basophils Percent Auto 1.5 % (0-2); Eosinophils Absolute Auto 0.2 X10*3/uL (0.0-0.4); Eosinophils Percent Auto 3.8 % (0-4); Hematocrit 43.3 % (42.0-52.0); Hemoglobin 14.7 g/dl (14.0-18.0); Imm Gran Abs Auto 0.01 X10*3/uL (0.00-0.03); Imm Gran Pct Auto 0.3 % (0.0-0.4); Lymphocytes Absolute Auto 0.9 X10*3/uL (1.2-4.9); Lymphocytes Percent Auto 23.3 % (20-40); Mean Corpuscular HGB Conc 33.9 g/dl (31.0-36.0); Mean Corpuscular Hemoglobin 28.9 pg (27.0-33.0); Mean Corpuscular Volume 85.2 fL (80.0-98.0); Mean Platelet Volume 9.7 fL (9.4-12.4); Monocytes Absolute Auto 0.6 X10*3/uL (0.1-1.2); Monocytes Percent Auto 14.9 % (2-11); Neutrophils Absolute Auto 2.2 x10*3/uL (2.0-8.3); Neutrophils Percent Auto 56.2 % (45-73); Platelet Count 245 X10*3/uL (160-400); Red Blood Count 5.08 X10*6/uL (4.60-5.80); Red Cell Distribution Width 12.9 % (11.0-16.0); White Blood Count 3.9 X10*3/uL (4.8-10.8)
[2023-02-18 12:33] VITALS: BP 116/87; PULSE 59; RESP 16; O2SAT 100
[2023-02-18 12:41] LABS: Alanine Aminotransferase 13 U/L (0-40); Albumin Level 4.1 g/dL (3.5-5.0); Alkaline Phosphatase 78 U/L (39-117); Anion Gap 9 (12-20); Aspartate Amino Transferase 20 U/L (5-37); Bilirubin Total 0.7 mg/dL (0.0-1.0); Blood Urea Nitrogen 16 mg/dL (9-16); Calcium 9.5 mg/dL (8.4-10.2); Carbon Dioxide 25 mmol/L (22-29); Chloride 110 mmol/L (96-108); Creatinine Clr Calc Pharmacy 81.9; Estimated Glomerular Filt Rate > 60; Glucose Random 78 mg/dL (60-115); Potassium 4.1 mmol/L (3.3-5.1); Sodium 140 mmol/L (135-145); Total Protein 6.8 g/dL (6.5-8.0)
[2023-02-18 12:43] LABS: Magnesium 1.8 mg/dL (1.6-2.6)
--- NOTE | 2023-02-18 12:44 | PC.NURSE ---
interpretor at bedside. pt a&ox3. respirations even and unlabored. pt reports slipping and falling in the shower this morning unwitnessed. pt reports hitting the back of his head but denies loc. pt is on asprin for blood thinners. pt now reporting pain in the front and back of his head. pt denies chest pains, nausea and vomiting. pt neuro assessment positive. pt normal sinus on tele.
[2023-02-18 14:23] LABS: Free T4 (Free Thyroxine) 0.72 ng/dL (0.71-1.85)
[2023-02-18 16:04] VITALS: BP 176/98; PULSE 70; RESP 18; O2SAT 99
== END 2023-02-18 16:29 | disposition home or self-care (01) ==
PROVIDERS: Physician Assistant Medical; Emergency Provider Emergency Medicine; PCP Internal Medicine
DX: R51.9 Headache, unspecified (principal); Z91.81 History of falling; E03.9 Hypothyroidism, unspecified; R00.1 Bradycardia, unspecified; I10 Essential (primary) hypertension; Z87.891 Personal history of nicotine dependence; Z79.82 Long term (current) use of aspirin; Z79.899 Other long term (current) drug therapy
CPT/HCPCS: 36415; 70450; 72125; 80053; 83735; 84439; 84443; 85025; 93005; 99284; 99285

== ENCOUNTER → 2023-03-17 13:30 | Outpatient (BNVA) | payer MEDICARE, SELFPAY | PROVIDERS: PCP Internal Medicine; Visit Provider Nurse Practitioner Family | DX: R13.14 Dysphagia, pharyngoesophageal phase (principal); K59.01 Slow transit constipation; K21.9 Gastro-esophageal reflux disease without esophagitis; Z79.899 Other long term (current) drug therapy | CPT/HCPCS: 99212 ==

== ENCOUNTER 2023-03-17 13:31 | Outpatient (AMB) | payer MEDICARE, SELFPAY ==
--- NOTE | 2023-03-17 13:32 | MHC.OFFVIS ---
Intake Vital Signs 03/17/23 13:33 Height 5 ft 5 in Weight 141 lb 8.588 oz BMI 23.6 BP 84/54 L Blood Pressure Location Lt brachial Position Sitting Pulse 70 Intake Visit Reasons: 1 month follow up Discuss Endo Intake Note: Patient presents to in office visit today in follow up of dysphagia. CC: Patient reports that Omeprazole has not been helping with symptoms. Per his sister she has noticed that the patient has getting constipation more often. Shear Tender Required: No Accompanied by: Sister Allergies No Known Allergies [No Known Allergies*] Allergy (Verified 03/17/23 13:37) HPI 1 month follow up Discuss Endo HPI Details LAST VISIT Dysphagia Will start patient on PPI. Patient reports that his symptoms improved right now. Patient is to eat smaller amounts. Discussed with patient and his sister to avoid dietary triggers in late night snacking. Staying upright for minimum 3 hours after meals discussed with patient. Constipation Start Senokot every day. Increase fluid intake and activity to promote better bowel motility. I will see patient in 4 weeks to discuss going for possible upper endoscopy. If patient symptoms will improved we my hold off on that. Both patient and his sister are agreeable to plan of care and verbalizes understanding of instructions. They were given the opportunity to ask questions and all questions answered. TODAY'S VISIT: Patient is here today for follow-up. Patient reports that he has been feeling better. His acid reflux symptoms are improved. Patient denies dysphagia. Reports that he sometimes feels like something is in his throat on the right side, that is not related to him eating. Patient has a appointment with chemistry research assistant to discuss ear pain next month. Encouraged to discuss right-sided throat pain. Patient had barium swallow that did not show any acid reflux normal swallowing seen during that exam. Patient reports that he took Senokot for 3 days and did not had a bowel movement. Bowel movement every 3-4 days. Patient has not been taking Senokot only on as needed basis. Patient denies melena, hematochezia, unintentional weight loss or ribbon like stools. Patient denies any abdominal pain or discomfort. Denies any nausea or vomiting. Reports to have good appetite. I [facility] Medical History Hearing loss Screening for prostate cancer Screening for diabetes mellitus Cough Dizziness Long-term use of aspirin therapy Glaucoma Insomnia Essential hypertension Surgical History History of biopsy History of colonoscopy Family History Father Prostate cancer Mother Chronic mental illness Osteoporosis Maternal Aunt Diabetes Hypertension Maternal Uncle Diabetes Hypertension Sister Liver failure Family/Other Chronic mental illness Brother No problems noted. Social History Housing: Apartment Alcohol intake: former Patient Tobacco Use Status: Former Tobacco user e-Cigarette/Vaping Use: Never Used Second Hand Smoke Exposure: No service: No Current occupational status: disabled Cognitive needs: No Hearing needs: No Vision needs: No Review of Systems Const Denies weight gain and Denies weight loss ENT Reports no additional complaints, Reports dysphagia (Occasionally feeling like something is stuck on the right side of his throa) and Denies odynophagia Card Reports no additional complaints Resp Reports no additional complaints GI Denies abdominal pain, Denies belching, Denies melena, Reports bloating, Denies change in bowel habits, Reports constipation, Reports dysphagia (Occasionally feeling like something is stuck on the right side of his throa), Denies excessive flatus, Denies dyspepsia, Denies heartburn, Denies diarrhea, Denies loose stools, Denies nausea, Denies odynophagia and Denies vomiting Reports no additional complaints Musc Reports no additional complaints Neuro Reports no additional complaints Psych Reports no additional complaints Endo Reports no additional complaints Physical Exam Vital Signs: Last Vital Signs Pulse 70 03/17/23 13:33 BP 84/54 L 03/17/23 13:33 BMI result Body Mass Index 23.6 Const General: healthy appearing, no acute distress and well developed Nutritional Appearance: well nourished Orientation/consciousness: patient oriented x3 HEENT Head: Yes normal to inspection, Yes normocephalic and Yes atraumatic Face and sinus: Yes normal facial exam Mouth: Normal oral and palatal mucosa present Throat: Yes posterior oropharynx normal, Yes tonsils normal and Yes uvula midline Eyes General: appearance normal, both eyes and all related structures Neck Neck: Yes normal visual inspection, Yes full ROM and Yes trachea midline Thyroid: Thyroid normal Resp Effort & Inspection: normal respiratory effort, able to speak in complete sentences, no tracheal deviation and symmetric chest movement Auscultation: clear to auscultation bilaterally Cardio Rate: regular rate Heart sounds: S1 normal heart sound present and S2 normal heart sound present GI Inspection: Yes normal to inspection and No distended Palpation (GI): Soft to palpation, not firm, nontender and No hepatosplenomegaly present Auscultation: normal bowel sounds General: Yes no CVA tenderness Back/Spine/Pelvis Back: no CVA tenderness Skin General skin exam: elasticity normal, turgor normal and dry skin Neuro General: patient oriented x3 Psych Appearance: grossly normal Mental Status: mental status grossly normal Assessment & Plan Assessment & Plan (1) Dysphagia: Code(s): R13.10 - Dysphagia, unspecified Qualifiers: Dysphagia type: pharyngoesophageal phase Qualified Code(s): R13.14 - Dysphagia, pharyngoesophageal phase (2) Constipation: Code(s): K59.00 - Constipation, unspecified Qualifiers: Constipation type: slow transit constipation Qualified Code(s): K59.01 - Slow transit constipation (3) GERD (gastroesophageal reflux disease): Code(s): K21.9 - Gastro-esophageal reflux disease without esophagitis Qualifiers: Esophagitis presence: esophagitis presence not specified Qualified Code(s): K21.9 - Gastro-esophageal reflux disease without esophagitis Plan Continue taking omeprazole in the morning half an hour before breakfast. Patient will start taking 2 Senokot every night. Patient will discuss with ENT provider right-sided sore throat next visit. Discussed with patient avoiding dietary triggers and in late night snacking. Staying upright for minimum 3 hours after meals discussed with patient. Patient was encouraged to increase fluid intake and activity to promote better bowel motility. I will see him in 4 months, sooner on as needed basis. Patient is agreeable to this plan and verbalizes understanding of instructions. He was given the opportunity to ask questions and all questions answered. Thank you for allowing me to participate in his care Medications: Changed From sennosides (Natural Senna Laxative) 8.6 mg PO BEDTIME 90 tabs 3RF constipation K59.00 - Constipation, unspecified To sennosides (Natural Senna Laxative) 17.2 mg (2 x 8.6 mg) PO BEDTIME 180 tabs 3RF constipation K59.00 - Constipation, unspecified Coding Level of Care Code Est Pt Level 3 (93609) Diagnoses Pharyngoesophageal dysphagia R13.14 Dysphagia type: pharyngoesophageal phase Slow transit constipation K59.01 Constipation type: slow transit constipation Gastroesophageal reflux disease, unspecified whether esophagitis present K21.9 Esophagitis presence: esophagitis presence not specified Time Spent (min) 25 Comment 15 minutes spent with patient and additional 10 minutes spent reviewing his records
[2023-03-17 13:33] VITALS: BP 84/54; PULSE 70; BMI 23.6
== END 2023-03-17 14:06 | disposition home or self-care (01) ==
PROVIDERS: PCP Internal Medicine; Visit Provider Nurse Practitioner Family
DX: R13.14 Dysphagia, pharyngoesophageal phase (principal); K59.01 Slow transit constipation; K21.9 Gastro-esophageal reflux disease without esophagitis
CPT/HCPCS: 99213

== ENCOUNTER 2023-05-03 13:15 | Outpatient (AMB) | payer OTHER, SELFPAY ==
[2023-05-03 13:35] VITALS: BP 112/80; BMI 23.8
--- NOTE | 2023-05-03 13:35 | A.OFFPC_ITS ---
Vital Signs 05/03/23 13:35 Height 5 ft 5 in Weight 143 lb BMI 23.8 BP 112/80 Blood Pressure Location Lt brachial Position Sitting Intake Visit Reasons: bp Intake Note: Patient here for a foolwo up BP Process Plant Operator Required: No Accompanied by: Sister Allergies No Known Allergies [No Known Allergies*] Allergy (Verified 05/03/23 14:08) Medication List - Last Reconciled 05/03/23 by Dea Serrano MD aspirin (Adult Aspirin Regimen) 81 mg PO DAILY 90 days atorvastatin 20 mg PO DAILY back brace As directed cane As directed cyclobenzaprine 10 mg PO TID PRN 4 days Knee brace As directed levothyroxine 137 mcg PO DAILY 90 days memantine 10 mg PO BID 90 days omeprazole 20 mg PO DAILY quetiapine mg PO sennosides (Natural Senna Laxative) 17.2 mg (2 x 8.6 mg) PO BEDTIME sertraline 25 mg PO QAM Shower Chair As directed tamsulosin 0.4 mg PO DAILY trazodone 100 mg PO BEDTIME vitamin E (dl, acetate) 360 mg PO DAILY Tobacco use date assessed: 08/31/22 HPI HPI Comments History of Present Illness Details This is 73-year-old male with hypertension, hypothyroidism, mild recurrent major depression, dementia and dyslipidemia that comes today accompanied by sister which is the head sulfide operator complaining still of lumbar pain. Has not received the back brace that was order in January. I will resend it to [facility]. Blood pressure stable without medications. Last TSH was elevated and this will be repeated today. Depression well controlled with sertraline. Has dementia and lives with sister but is able to shower by himself any by himself. Also toilet by himself. [facility] Medical History (Updated 05/03/23 @ 15:52 by Dea Serrano MD) Hearing loss Screening for prostate cancer Screening for diabetes mellitus Cough Dizziness Long-term use of aspirin therapy Glaucoma Insomnia Essential hypertension Surgical History History of biopsy History of colonoscopy Family History Father Prostate cancer Mother Chronic mental illness Osteoporosis Maternal Aunt Diabetes Hypertension Maternal Uncle Diabetes Hypertension Sister Liver failure Family/Other Chronic mental illness Brother No problems noted. Housing: Apartment Alcohol intake: former Patient Tobacco Use Status: Former Tobacco user e-Cigarette/Vaping Use: Never Used Second Hand Smoke Exposure: No service: No Current occupational status: disabled Cognitive needs: No Hearing needs: No Vision needs: No Questionnaire Thrive Questionnaire Date Thrive assessed: 08/31/22 MURRAY-7 AMB Questionnaire MURRAY-7 Date MURRAY - 7 assessed: 08/31/22 Source: Developed by Drs. Hank Craft, Mckayla Burgos, Martinez Sena and colleagues, with an educational taco from [employer]. Review of Systems Const All systems reviewed & are unremarkable except as noted in HPI and below Eyes Reports no additional complaints, Denies change in vision and Denies other visual disturbances Card Denies chest pain at rest, Denies chest pain with activity, Denies edema, Denies irregular heart rhythm, Denies claudication, Denies dyspnea, Denies dyspnea on exertion, Denies orthopnea, Denies paroxysmal nocturnal dyspnea and Denies slow heart rate Resp Denies cough, Denies dyspnea and Denies dyspnea on exertion GI Denies abdominal pain, Denies change in bowel habits, Denies excessive flatus, Denies nausea and Denies vomiting Denies urinary hesitancy, Denies urinary incontinence and Denies urinary urgency Musc Denies abnormal gait, Denies atrophy, Denies deformity and Denies limited range of motion Skin/Breast Denies bleeding lesions, Denies changing lesions and Denies rash Neuro Denies abnormal gait and Denies lack of coordination Physical exam (Primary Care) Vital Signs: Last Vital Signs BP 112/80 05/03/23 13:35 BMI result Body Mass Index 23.8 Tobacco/Smoking Status: Tobacco use Status Tobacco use date assessed 08/31/22 05/03/23 13:37 Patient Tobacco Use Status Former Tobacco user 05/03/23 13:37 e-Cigarette/Vaping Use Never Used 05/03/23 13:37 Thrive Assessment: Date of Thrive Assessment Date Thrive assessed 08/31/22 05/03/23 13:37 Eyes General: appearance normal, both eyes and all related structures Eyelids: Yes eyelids normal Conjunctivae: conjunctivae normal Neck Neck: Yes normal visual inspection and Yes supple Resp Effort & Inspection: normal respiratory effort Auscultation: clear to auscultation bilaterally Cardio Jugular venous distension: no JVD Rate: regular rate Rhythm: regular rhythm Heart sounds: S1 normal heart sound present and S2 normal heart sound present Extrem General: Yes full ROM Office Procedures Flu Questionnaire Does the patient have a severe egg allergy?: No Does the patient have severe life threatening allergies?: No Does the patient have a fever or illness today?: No Has the patient ever had Guillain-Debord Syndrome?: No Has the patient ever had any past reaction to a flu shot?: No Immunizations flu vacc [id number] 6mos up(PF) 60 mcg(15 mcgx4)/0.5 mL IM syringe Performing Provider: Dea Serrano MD Per[facility] Administered by: MARCE Aviles on 05/03/23 14:23 Dose Route Admin Location Dispensed Lot Number Expiration Date NDC Industrial Methods Consultant 0.5 mL IM Left Deltoid 0.5 mL [id number] 12/05/23 60362-706-87 [employer] VIS Given Date VIS Provided VIS Publication Date 05/03/23 Single Vaccine 21 Eligibility Eligibility Date Funding Source Not [facility] Eligible 05/03/23 Private Assessment and Plan Assessment & Plan (1) Mild recurrent major depression: Code(s): F33.0 - Major depressive disorder, recurrent, mild Plan: Continue sertraline. Follow-up with psychiatry. (2) Hypothyroidism: Code(s): E03.9 - Hypothyroidism, unspecified Plan: Repeat TSH today. (3) Dementia: Code(s): F03.90 - Unspecified dementia, unspecified severity, without behavioral disturbance, psychotic disturbance, mood disturbance, and anxiety Plan: Continue memantine. (4) Lumbar pain: Code(s): M54.50 - Low back pain, unspecified Plan: Back brace reorder. (5) Dyslipidemia: Code(s): E78.5 - Hyperlipidemia, unspecified Plan: Continue statins. Orders: Orders Thyroid Stimulating Hormone Today E03.9 - Hypothyroidism, unspecified ECG 12 lead EKG Today Z01.818 - Encounter for other preprocedural examination Vitamin D 25-OH Total 2 Months E55.9 - Vitamin D deficiency, unspecified Influenza [id number] Immunization Today Z23 - Encounter for immunization Lipid Panel 2 Months E78.5 - Hyperlipidemia, unspecified Comprehensive [place]. Panel Fast 2 Months Z01.818 - Encounter for other preprocedural examination Medications: Refilled back brace As directed 1 ea 0RF M54.50 - Low back pain, unspecified Coding Level of Care Code Est Pt Level 4 (99295) Diagnoses 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 Hypothyroidism E03.9 Dementia F03.90 Lumbar pain M54.50 Dyslipidemia E78.5 Time Spent (min) 24
== END 2023-05-03 14:27 | disposition home or self-care (01) ==
PROVIDERS: PCP Internal Medicine; Visit Provider Internal Medicine
DX: F33.0 Major depressive disorder, recurrent, mild (principal); E03.9 Hypothyroidism, unspecified; F03.90 Unspecified dementia, unspecified severity, without behavioral disturbance, psychotic disturbance, mood disturbance, and anxiety; M54.50 Low back pain, unspecified; E78.5 Hyperlipidemia, unspecified; Z23 Encounter for immunization
CPT/HCPCS: 90471; 90686; 99214

== ENCOUNTER 2023-05-03 14:37 | Outpatient (REF) | payer OTHER, SELFPAY ==
[2023-05-03 14:55] LABS: MANUAL DIFF FLAG NO
[2023-05-03 15:31] LABS: Basophils Absolute Auto 0.1 X10*3/uL (0.0-0.2); Eosinophils Absolute Auto 0.2 X10*3/uL (0.0-0.4); Eosinophils Percent Auto 3.6 % (0-4); Hematocrit 42.8 % (42.0-52.0); Imm Gran Abs Auto 0.02 X10*3/uL (0.00-0.03); Imm Gran Pct Auto 0.3 % (0.0-0.4); Lymphocytes Absolute Auto 1.2 X10*3/uL (1.2-4.9); Lymphocytes Percent Auto 20.9 % (20-40); Mean Corpuscular HGB Conc 32.7 g/dl (31.0-36.0); Mean Corpuscular Hemoglobin 28.3 pg (27.0-33.0); Mean Corpuscular Volume 86.6 fL (80.0-98.0); Mean Platelet Volume 10.4 fL (9.4-12.4); Monocytes Absolute Auto 0.6 X10*3/uL (0.1-1.2); Monocytes Percent Auto 10.9 % (2-11); Neutrophils Absolute Auto 3.7 x10*3/uL (2.0-8.3); Neutrophils Percent Auto 63.3 % (45-73); Platelet Count 253 X10*3/uL (160-400); Red Blood Count 4.94 X10*6/uL (4.60-5.80); Red Cell Distribution Width 13.4 % (11.0-16.0); White Blood Count 5.8 X10*3/uL (4.8-10.8)
[2023-05-03 16:13] LABS: Thyroid Stimulating Hormone 15.14 uIU/mL (0.32-4.0); Vitamin D 25-OH Total 19.8 ng/mL (>30)
== END 2023-05-03 14:38 | disposition home or self-care (01) ==
LOC: HO.LAB 14:37
PROVIDERS: PCP Internal Medicine; Visit Provider Internal Medicine
DX: E03.9 Hypothyroidism, unspecified (principal); F03.90 Unspecified dementia, unspecified severity, without behavioral disturbance, psychotic disturbance, mood disturbance, and anxiety; E55.9 Vitamin D deficiency, unspecified
CPT/HCPCS: 36415; 82306; 84443; 85025

== ENCOUNTER 2023-07-19 12:30 | Outpatient (AMB) | payer MEDICARE, SELFPAY ==
--- NOTE | 2023-07-19 12:46 | A.OFFVIS_ITS ---
Intake Vital Signs 07/19/23 12:47 Height 5 ft 5 in Weight 142 lb BMI 23.6 BP 101/64 Blood Pressure Location Lt brachial Position Sitting Pulse 71 Intake Visit Reasons: 4 month follow up Constipation, Gerd Intake Note: Patient follow up for Constipation and GERD. Patient denies any GI issues, everything is much better and also needed some refills. Optical Instrument Assembly Supervisor Required: Yes Optical Instrument Assembly Supervisor Name: [facility] Accompanied by: Family/Other Allergies No Known Allergies [No Known Allergies*] Allergy (Verified 07/19/23 12:45) HPI 4 month follow up Constipation, Gerd HPI Details Dysphagia Constipation GERD (gastroesophageal reflux disease) Plan Continue taking omeprazole in the morning half an hour before breakfast. Patient will start taking 2 Senokot every night. Patient will discuss with ENT provider right-sided sore throat next visit. Discussed with patient avoiding dietary triggers and in late night snacking. Staying upright for minimum 3 hours after meals discussed with patient. Patient was encouraged to increase fluid intake and activity to promote better bowel motility. I will see him in 4 months, sooner on as needed basis. Patient is agreeable to this plan and verbalizes understanding of instructions. He was given the opportunity to ask questions and all questions answered. ? Thank you for allowing me to participate in his care Medications Changed Changed From sennosides (Natural Senna Laxative) 8.6 mg PO BEDTIME 90 tabs 3RF constipati on K59.00 Changed To sennosides (Natural Senna Laxative) 17.2 mg (2 x 8.6 mg) PO BEDTIME 180 tabs 3RF constipation K59.00 TODAY'S VISIT: Patient is here today for follow-up. Patient reports that he has been feeling significantly better. Patient started taking omeprazole every morning and states that his symptoms of dysphagia have improved. Patient denies any dysphagia, odynophagia. Denies any dyspepsia or acid reflux. Patient reports constant ringing in his right ear. Patient reports that he feels like something is constantly whistling/swishing. Patient does not feel like his your is blocked. Reports that he hears same out of both ears. Patient has not followed up yet with ENT. Patient was sent to ENT in December of 2022. Patient reports that he is also moving his bowels better now that he is taking Senokot. Patient is drinking plenty fluids. Trying to change his diet and eating more vegetables. Patient denies any melena, hematochezia, unintentional weight loss or ribbon like stools. Patient had colonoscopy in 2018 that showed no polyps. [facility] Medical History Hearing loss Screening for prostate cancer Screening for diabetes mellitus Cough Dizziness Long-term use of aspirin therapy Glaucoma Insomnia Essential hypertension Surgical History History of biopsy History of colonoscopy Family History Father Prostate cancer Mother Chronic mental illness Osteoporosis Maternal Aunt Diabetes Hypertension Maternal Uncle Diabetes Hypertension Sister Liver failure Family/Other Chronic mental illness Brother No problems noted. Social History Housing: Apartment Alcohol intake: former Patient Tobacco Use Status: Former Tobacco user e-Cigarette/Vaping Use: Never Used Second Hand Smoke Exposure: No service: No Current occupational status: disabled Cognitive needs: No Hearing needs: No Vision needs: No Review of Systems Const Denies weight gain and Denies weight loss ENT Reports no additional complaints, Denies dysphagia and Denies odynophagia Card Reports no additional complaints Resp Reports no additional complaints GI Denies abdominal pain, Denies belching, Denies melena, Denies bloating, Denies change in bowel habits, Denies dysphagia, Denies excessive flatus, Denies dyspepsia, Denies heartburn, Denies diarrhea, Denies loose stools, Denies nausea, Denies odynophagia and Denies vomiting Reports no additional complaints Musc Reports no additional complaints Neuro Reports no additional complaints Psych Reports no additional complaints Endo Reports no additional complaints Physical Exam Vital Signs: Last Vital Signs Pulse 71 07/19/23 12:47 BP 101/64 07/19/23 12:47 BMI result Body Mass Index 23.6 Const General: healthy appearing, no acute distress and well developed Nutritional Appearance: well nourished Orientation/consciousness: patient oriented x3 Resp Effort & Inspection: normal respiratory effort, able to speak in complete sentences, no tracheal deviation and symmetric chest movement Auscultation: clear to auscultation bilaterally Cardio Rate: regular rate GI Inspection: Yes normal to inspection and No distended Palpation (GI): Soft to palpation, not firm, nontender and No hepatosplenomegaly present Auscultation: normal bowel sounds General: Yes no CVA tenderness Back/Spine/Pelvis Back: no CVA tenderness Skin General skin exam: elasticity normal, turgor normal and dry skin Neuro General: patient oriented x3 Psych Appearance: grossly normal Mental Status: mental status grossly normal Assessment & Plan Assessment & Plan (1) Dysphagia: Code(s): R13.10 - Dysphagia, unspecified Qualifiers: Dysphagia type: pharyngoesophageal phase Qualified Code(s): R13.14 - Dysphagia, pharyngoesophageal phase (2) Constipation: Code(s): K59.00 - Constipation, unspecified Qualifiers: Constipation type: slow transit constipation Qualified Code(s): K59.01 - Slow transit constipation (3) GERD (gastroesophageal reflux disease): Code(s): K21.9 - Gastro-esophageal reflux disease without esophagitis Qualifiers: Esophagitis presence: esophagitis presence not specified Qualified Code(s): K21.9 - Gastro-esophageal reflux disease without esophagitis (4) Tinnitus of right ear: Code(s): H93.11 - Tinnitus, right ear Plan Patient was encouraged to follow-up with ENT. Call for the appointment. Phone number given to patient. Continue taking omeprazole every morning half an hour before breakfast. Continue taking senna daily. Patient was also encouraged to increase fluid intake and activity to promote better bowel motility. Patient will avoid dietary triggers and late night snacking. Staying upright for minimum 3 hours after meals discussed with patient. I will see patient in 6 months, sooner on as needed basis. Patient is agreeable to this plan and verbalizes understanding of instructions. He was given the opportunity to ask questions and all questions answered. Thank you for allowing me to participate in his care Medications: Refilled omeprazole 20 mg PO DAILY 90 caps 3RF K21.9 - Gastro-esophageal reflux disease without esophagitis sennosides (Natural Senna Laxative) 17.2 mg (2 x 8.6 mg) PO BEDTIME 180 tabs 3RF constipation K59.00 - Constipation, unspecified Coding Level of Care Code Est Pt Level 3 (65643) Diagnoses Pharyngoesophageal dysphagia R13.14 Dysphagia type: pharyngoesophageal phase Slow transit constipation K59.01 Constipation type: slow transit constipation Gastroesophageal reflux disease, unspecified whether esophagitis present K21.9 Esophagitis presence: esophagitis presence not specified Tinnitus of right ear H93.11 Time Spent (min) 25 Comment 15 minutes spent with patient and additional 10 minutes spent reviewing his records
[2023-07-19 12:47] VITALS: BP 101/64; PULSE 71; BMI 23.6
== END 2023-07-19 13:09 | disposition home or self-care (01) ==
PROVIDERS: PCP Internal Medicine; Visit Provider Nurse Practitioner Family
DX: R13.14 Dysphagia, pharyngoesophageal phase (principal); K59.01 Slow transit constipation; K21.9 Gastro-esophageal reflux disease without esophagitis; H93.11 Tinnitus, right ear
CPT/HCPCS: 99213

== ENCOUNTER → 2023-07-19 12:30 | Outpatient (BNVA) | payer MEDICARE, SELFPAY | PROVIDERS: PCP Internal Medicine; Visit Provider Nurse Practitioner Family | DX: K21.9 Gastro-esophageal reflux disease without esophagitis (principal); R13.14 Dysphagia, pharyngoesophageal phase; K59.01 Slow transit constipation; H93.11 Tinnitus, right ear | CPT/HCPCS: 99212 ==

== ENCOUNTER 2023-08-19 13:13 | Outpatient (AMB) | payer MEDICARE, SELFPAY ==
--- NOTE | 2023-08-19 13:24 | A.OFFPC_ITS ---
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 Required: No Accompanied by: Self / Same As Patient Allergies No Known Allergies [No Known Allergies*] Allergy (Verified 08/19/23 13:45) Medication List - Last Reconciled 08/19/23 by Dea Serrano MD aspirin (Adult Aspirin Regimen) 81 mg PO DAILY 90 days atorvastatin 20 mg PO DAILY back brace As directed cane As directed cyclobenzaprine 10 mg PO TID PRN 4 days Knee brace As directed levothyroxine 137 mcg PO DAILY 90 days memantine 10 mg PO BID 90 days omeprazole 20 mg PO DAILY quetiapine mg PO sennosides (Natural Senna Laxative) 17.2 mg (2 x 8.6 mg) PO BEDTIME sertraline 25 mg PO QAM Shower Chair As directed tamsulosin 0.4 mg PO DAILY trazodone 100 mg PO BEDTIME vitamin E (dl, acetate) 360 mg PO DAILY Tobacco use date assessed: 08/19/23 Fall risk assessment: No Falls in past year Last assessed Fall Risk: 08/19/23 Dental Screening Dental Screen Date: 08/19/23 Did you have a dental visit in the last 12 months?: No Did you have a dental problem in the last 6 months where you did not have access to dental care?: No Was dental information given to patient?: Patient has dentist HPI HPI Comments History of Present Illness Details This is a 73-year-old male with dementia, mild recurrent major depression, hypothyroidism and dyslipidemia that comes today accompanied by hospice nurse practitioner which is the sister for follow-up on his conditions. Depression stable with medications and this is follow by Psychiatry. Last TSH was elevated and this will be repeated today. Levothyroxine dose was changed last time. Blood pressure stable. He is awake, alert and oriented to person only. No chest pain or shortness of breath. On statins for he is elevated cholesterol which he is compliant with it. [facility] Medical History Hearing loss Screening for prostate cancer Screening for diabetes mellitus Cough Dizziness Long-term use of aspirin therapy Glaucoma Insomnia Essential hypertension Surgical History History of biopsy History of colonoscopy Family History Father Prostate cancer Mother Chronic mental illness Osteoporosis Maternal Aunt Diabetes Hypertension Maternal Uncle Diabetes Hypertension Sister Liver failure Family/Other Chronic mental illness Brother No problems noted. Social History Housing: Apartment Alcohol intake: former Patient Tobacco Use Status: Former Tobacco user e-Cigarette/Vaping Use: Never Used Second Hand Smoke Exposure: No service: No Current occupational status: disabled Cognitive needs: No Hearing needs: No Vision needs: No Questionnaire PHQ-9 Over the last 2 weeks, how often have you been bothered by any of the following problems? 1. Little interest or pleasure in doing things: not at all 2. Feeling down, depressed, or hopeless: several days 3. Trouble falling or staying asleep, or sleeping too much: not at all 4. Feeling tired or having little energy: not at all 5. Poor appetite or overeating: not at all 6. Feeling bad about yourself - or that you are a failure or have let yourself or your family down: not at all 7. Trouble concentrating on things, such as reading the newspaper or watching television: not at all 8. Moving or speaking so slowly that other people could have noticed. Or the opposite - being so fidgety or restless that you have been moving around a lot more than usual: not at all 9. Thoughts that you would be better off or of hurting yourself in some way: not at all Total score: 1 Depression Screening Interpretation: Negative Depression Screening Done: Yes 78371 - PHQ-9 Billing: Yes Source: Developed by Drs. Hank Craft, Mckayla Burgos, Martinez Sena and colleagues, with an educational taco from [employer]. Thrive Questionnaire Date Thrive assessed: 08/19/23 I am a: Patient What is your living situation today?: I have a steady place to live Within the past 12 months, did the food you bought not last and you didn't have the money to get more?: Never true Within the past 12 months, did you worry whether your food would run out before you got money to buy more?: Never true Do you have trouble paying for medicines?: No Do you have trouble getting transportation to medical appointments?: No Do you have trouble paying your heating and electricity bill?: No Do you have trouble taking care of your child, family member or friend?: No Do you have trouble with day-to-day activities such as bathing, preparing meals, shopping, managing finances, etc.?: Yes Are you currently unemployed and looking for a job?: No Are you interested in more education?: No Please select the resources that you would like help with: None Currently or been in a relationship where the following occur: no concerns reported THRIVE Score: 0 AUDIT C Alcohol Use Questionnaire (AUDIT-C) 1. How often do you have a drink containing alcohol?: Never Total Score: 0 Score Reviewed/Action Taken: No MURRAY-7 AMB Questionnaire MURRAY-7 Date MURRAY - 7 assessed: 08/19/23 Feeling nervous, anxious, or on edge: 1 = Several days Not being able to stop or control worryin = Not at all Worrying too much about different things: 0 = Not at all Trouble relaxin = Not at all Being so restless that it is hard to sit still: 0 = Not at all Becoming easily annoyed or irritable: 0 = Not at all Feeling afraid as if something awful might happen: 0 = Not at all Total MURRAY-7 score (0-4 normal; 5-9 mild; 10-14 moderate; 15-21 severe): 1 Source: Developed by Drs. Hank Craft, Mckayla Burgos, Martinez Sena and colleagues, with an educational taco from [employer]. MURRAY-7 Assessment Billing MURRAY-7 Assessment Tool: MURRAY-7 Assessment 29411 Review of Systems Const All systems reviewed & are unremarkable except as noted in HPI and below Eyes Reports no additional complaints, Denies change in vision and Denies other visual disturbances Card Denies chest pain at rest, Denies chest pain with activity, Denies edema, Denies irregular heart rhythm, Denies claudication, Denies dyspnea, Denies dyspnea on exertion, Denies orthopnea, Denies paroxysmal nocturnal dyspnea and Denies slow heart rate Resp Denies cough, Denies dyspnea and Denies dyspnea on exertion GI Denies abdominal pain, Denies change in bowel habits, Denies excessive flatus, Denies nausea and Denies vomiting Denies urinary hesitancy, Denies urinary incontinence and Denies urinary urgency Musc Denies abnormal gait, Denies atrophy, Denies deformity and Denies limited range of motion Skin/Breast Denies bleeding lesions, Denies changing lesions and Denies rash Neuro Denies abnormal gait, Denies behavioral changes and Denies lack of coordination Psych Denies behavioral changes Endo Denies cold intolerance Randall/Lymph Denies easy bleeding and Denies easy bruising Aller/Immun Denies urticaria Physical exam (Primary Care) Vital Signs: Last Vital Signs BP 102/70 08/19/23 13:26 BMI result Body Mass Index 23.1 Tobacco/Smoking Status: Tobacco use Status Tobacco use date assessed 08/19/23 08/19/23 13:34 Patient Tobacco Use Status Former Tobacco user 08/19/23 13:28 e-Cigarette/Vaping Use Never Used 08/19/23 13:28 PHQ-9: PHQ-9 Score PHQ-9: Total score 1 08/19/23 13:34 Depression Screening Interpretation: Negative Thrive Assessment: Date of Thrive Assessment Date Thrive assessed 08/19/23 08/19/23 13:28 Currently or been in a relationship where the following occur: no concerns reported Const Orientation/consciousness: oriented to person HENMT Head: Yes normal to inspection, Yes normocephalic and Yes atraumatic Ears: external ears normal Eyes General: appearance normal, both eyes and all related structures Eyelids: Yes eyelids normal Conjunctivae: conjunctivae normal Neck Neck: Yes normal visual inspection and Yes supple Resp Effort & Inspection: normal respiratory effort Auscultation: clear to auscultation bilaterally Cardio Jugular venous distension: no JVD Rate: regular rate Rhythm: regular rhythm Heart sounds: S1 normal heart sound present and S2 normal heart sound present Neuro General: oriented to person and gait normal Extrem General: Yes full ROM Assessment and Plan Assessment & Plan (1) Mild recurrent major depression: Code(s): F33.0 - Major depressive disorder, recurrent, mild Plan: Continue sertraline and Seroquel. Follow-up with psychiatry. (2) Dementia: Code(s): F03.90 - Unspecified dementia, unspecified severity, without behavioral disturbance, psychotic disturbance, mood disturbance, and anxiety Plan: Continue memantine. (3) Hypothyroidism: Code(s): E03.9 - Hypothyroidism, unspecified Plan: Repeat TSH today. (4) Dyslipidemia: Code(s): E78.5 - Hyperlipidemia, unspecified Plan: Continue statins. Orders: Orders Vitamin D 25-OH Total Today E55.9 - Vitamin D deficiency, unspecified Thyroid Stimulating Hormone Today E03.9 - Hypothyroidism, unspecified Referrals Ear/Nose/Throat Referral H92.09 - Otalgia, unspecified ear Medications: New cholecalciferol (vitamin D3) 25 mcg PO DAILY 90 days 90 caps 1RF Coding Level of Care Code Est Pt Level 4 (23096) Diagnoses 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 Dementia F03.90 Hypothyroidism E03.9 Dyslipidemia E78.5 Additional Codes MURRAY-7 Assessment Billing - MURRAY-7 Assessment Tool: MURRAY-7 Assessment 07299 ([id number]) Time Spent (min) 25
[2023-08-19 13:26] VITALS: BP 102/70; BMI 23.1
== END 2023-08-19 14:00 | disposition home or self-care (01) ==
PROVIDERS: PCP Internal Medicine; Visit Provider Internal Medicine
DX: F33.0 Major depressive disorder, recurrent, mild (principal); F03.90 Unspecified dementia, unspecified severity, without behavioral disturbance, psychotic disturbance, mood disturbance, and anxiety; E03.9 Hypothyroidism, unspecified; E78.5 Hyperlipidemia, unspecified
CPT/HCPCS: 99214

== ENCOUNTER 2023-08-19 14:13 | Outpatient (REF) | payer OTHER, SELFPAY ==
[2023-08-19 16:01] LABS: Thyroid Stimulating Hormone 1.35 uIU/mL (0.32-4.0); Vitamin D 25-OH Total 18.9 ng/mL (>30)
== END 2023-08-19 14:14 | disposition home or self-care (01) ==
LOC: HO.LAB 14:13
PROVIDERS: PCP Internal Medicine; Visit Provider Internal Medicine
DX: E55.9 Vitamin D deficiency, unspecified (principal); E03.9 Hypothyroidism, unspecified
CPT/HCPCS: 36415; 82306; 84443

== ENCOUNTER 2024-08-02 15:36 | Outpatient (AMB) | payer OTHER, SELFPAY ==
[2024-08-02 15:44] VITALS: BP 114/78; PULSE 64; O2SAT 98; BMI 23.6
--- NOTE | 2024-08-02 15:44 | A.OFFPC_ITS ---
Vital Signs 08/02/24 15:44 Height 5 ft 5 in Weight 142 lb BMI 23.6 BP 114/78 Blood Pressure Location Lt brachial Position Sitting Pulse 64 Pulse Source Pulse Oximeter Pulse Oximetry (%) 98 Oxygen Delivery Method Room Air Intake Visit Reasons: pe Automatic Trimming Sewer Required: Yes Automatic Trimming Sewer Language: Marine Engineering Teacher Name: Dea Serrano MD Information Interpreted: non-clinical & clinical Accompanied by: Self / Same As Patient Allergies No Known Allergies [No Known Allergies*] Allergy (Verified 08/02/24 16:16) Medication List - Last Reconciled 08/02/24 by Dea Serrano MD aspirin (Adult Aspirin Regimen) 81 mg PO DAILY 90 days atorvastatin 20 mg PO DAILY back brace As directed cane As directed cholecalciferol (vitamin D3) 25 mcg PO DAILY 90 days cyclobenzaprine 10 mg PO TID PRN 4 days Knee brace As directed levothyroxine 137 mcg PO DAILY 90 days memantine 10 mg PO BID 90 days omeprazole 20 mg PO DAILY quetiapine mg PO sennosides (Natural Senna Laxative) 17.2 mg (2 x 8.6 mg) PO BEDTIME sertraline 25 mg PO QAM Shower Chair As directed tamsulosin 0.4 mg PO DAILY trazodone 100 mg PO BEDTIME vitamin E (dl, acetate) 360 mg PO DAILY Tobacco use date assessed: 08/02/24 Fall risk assessment: No Falls in past year Last assessed Fall Risk: 08/02/24 Dental Screening Dental Screen Date: 08/02/24 Did you have a dental visit in the last 12 months?: Yes Did you have a dental problem in the last 6 months where you did not have access to dental care?: No Was dental information given to patient?: Patient has dentist HPI HPI Comments History of Present Illness Details The patient is a 74-year-old male presenting for his physical exam. He had previously received a pneumococcal vaccine at approximately 63 years old, and this visit is for the appropriate revaccination post-67. The patient is not aware of any medication allergies. His current medications for chronic conditions include aspirin and atorvastatin for hyperlipidemia, levothyroxine for hypothyroidism, memantine for dementia, and omeprazole for GERD. He also takes sertraline and quetiapine for mild major depression follow by Psychiatry. He has a significant family history with his father succumbing to prostate cancer at 69 and his mother passing at 91. Although not currently smoking or consuming alcohol, he formerly engaged in both. No complaints of new exertional symptoms like chest pain or shortness of breath were mentioned. Memory issues were noted, consistent with his dementia diagnosis, necessitating accompaniment during the visit. Past lumbar pain was also discussed, with possible considerations for imaging and muscle relaxants due to its sporadic recurrence. - Pneumococcal vaccine due to age and pr ior vaccination history - Colonoscopy performed in 2018, next du e in 2027 [facility] Medical History (Updated 08/02/24 @ 19:55 by Dea Serrano MD) Hearing loss Screening for prostate cancer Screening for diabetes mellitus Cough Dizziness Long-term use of aspirin therapy Glaucoma Insomnia Essential hypertension Surgical History History of biopsy History of colonoscopy Family History Father Prostate cancer Mother Chronic mental illness Osteoporosis Maternal Aunt Diabetes Hypertension Maternal Uncle Diabetes Hypertension Sister Liver failure Family/Other Chronic mental illness Brother No problems noted. Social History Housing: Apartment Alcohol intake: former Patient Tobacco Use Status: Former Tobacco user Tobacco use type: Cigarette e-Cigarette/Vaping Use: Never Used Second Hand Smoke Exposure: No service: No Current occupational status: disabled Cognitive needs: No Hearing needs: No Vision needs: No Questionnaire PHQ-9 Over the last 2 weeks, how often have you been bothered by any of the following problems? 1. Little interest or pleasure in doing things: not at all 2. Feeling down, depressed, or hopeless: several days 3. Trouble falling or staying asleep, or sleeping too much: not at all 4. Feeling tired or having little energy: not at all 5. Poor appetite or overeating: not at all 6. Feeling bad about yourself - or that you are a failure or have let yourself or your family down: not at all 7. Trouble concentrating on things, such as reading the newspaper or watching television: not at all 8. Moving or speaking so slowly that other people could have noticed. Or the opposite - being so fidgety or restless that you have been moving around a lot more than usual: not at all 9. Thoughts that you would be better off or of hurting yourself in some way: not at all Total score: 1 Depression Screening Interpretation: Positive Depression Screening Follow-up: Existing condition, In treatment, Community Mental Health Worker F/U and Follow- up Visit Requested Depression Screening Done: Yes 76937 - PHQ-9 Billing: Yes Source: Developed by Drs. Hank Craft, Mckayla Burgos, Martinez Sena and colleagues, with an educational taco from [employer]. Thrive Questionnaire Date Thrive assessed: 08/02/24 I am a: Patient What is your living situation today?: I have a steady place to live Within the past 12 months, did the food you bought not last and you didn't have the money to get more?: Never true Within the past 12 months, did you worry whether your food would run out before you got money to buy more?: Never true Do you have trouble paying for medicines?: No Do you have trouble getting transportation to medical appointments?: No Do you have trouble paying your heating and electricity bill?: No Do you have trouble taking care of your child, family member or friend?: No Do you have trouble with day-to-day activities such as bathing, preparing meals, shopping, managing finances, etc.?: Yes Are you currently unemployed and looking for a job?: No Are you interested in more education?: No Please select the resources that you would like help with: None Currently or been in a relationship where the following occur: No concerns reported THRIVE Score: 0 AUDIT C Alcohol Use Questionnaire (AUDIT-C) 1. How often do you have a drink containing alcohol?: Never Total Score: 0 Score Reviewed/Action Taken: No MURRAY-7 AMB Questionnaire MURRAY-7 Date MURRAY - 7 assessed: 08/02/24 Feeling nervous, anxious, or on edge: 1 = Several days Not being able to stop or control worryin = Not at all Worrying too much about different things: 0 = Not at all Trouble relaxin = Not at all Being so restless that it is hard to sit still: 0 = Not at all Becoming easily annoyed or irritable: 0 = Not at all Feeling afraid as if something awful might happen: 0 = Not at all Total MURRAY-7 score (0-4 normal; 5-9 mild; 10-14 moderate; 15-21 severe): 1 Source: Developed by Drs. Hank Craft, Mckayla Burgos, Martinez Sena and colleagues, with an educational taco from [employer]. MURRAY-7 Assessment Billing MURRAY-7 Assessment Tool: MURRAY-7 Assessment 01885 Review of Systems Const All systems reviewed & are unremarkable except as noted in HPI and below Card Denies chest pain at rest, Denies chest pain with activity, Denies edema, Denies irregular heart rhythm, Denies claudication, Denies dyspnea, Denies dyspnea on exertion, Denies orthopnea, Denies paroxysmal nocturnal dyspnea and Denies slow heart rate Resp Denies cough, Denies dyspnea and Denies dyspnea on exertion GI Denies abdominal pain, Denies change in bowel habits, Denies excessive flatus, Denies nausea and Denies vomiting Denies urinary hesitancy, Denies urinary incontinence and Denies urinary urgency Musc Denies abnormal gait, Denies atrophy, Denies deformity and Denies limited range of motion Skin/Breast Denies bleeding lesions, Denies changing lesions and Denies rash Neuro Denies abnormal gait, Denies behavioral changes and Denies lack of coordination Psych Denies behavioral changes Physical exam (Primary Care) Vital Signs: Last Vital Signs Pulse 64 08/02/24 15:44 BP 114/78 08/02/24 15:44 Pulse Ox 98 08/02/24 15:44 Oxygen Delivery Method Room Air 08/02/24 15:44 BMI result Body Mass Index 23.6 Tobacco/Smoking Status: Tobacco use Status Tobacco use date assessed 08/02/24 08/02/24 15:49 Patient Tobacco Use Status Former Tobacco user 08/02/24 15:49 Tobacco use type Cigarette 08/02/24 15:49 e-Cigarette/Vaping Use Never Used 08/02/24 15:49 PHQ-9: PHQ-9 Score PHQ-9: Total score 1 08/02/24 16:36 Depression Screening Interpretation: Positive Depression Screening Follow-up: Existing condition, In treatment, Community Mental Health Worker F/U and Follow- up Visit Requested Thrive Assessment: Date of Thrive Assessment Date Thrive assessed 08/02/24 08/02/24 15:49 Currently or been in a relationship where the following occur: No concerns repo rted Const Orientation/consciousness: oriented to person HENMT Head: Yes normal to inspection, Yes normocephalic and Yes atraumatic Neck Neck: Yes normal visual inspection and Yes supple Resp Effort & Inspection: normal respiratory effort Auscultation: clear to auscultation bilaterally Cardio Jugular venous distension: no JVD Rate: regular rate Rhythm: regular rhythm Heart sounds: S1 normal heart sound present and S2 normal heart sound present GI Inspection: Yes normal to inspection Palpation (GI): Soft to palpation and nontender Auscultation: normal bowel sounds Skin General skin exam: no rashes or lesions noted Neuro General: oriented to person and no focal motor deficits Extrem General: Yes full ROM Psych Appearance: grossly normal Immunizations pneumoc 20-darrell conj-dip cr(PF) 0.5 mL IM syringe Performing Provider: Dea Serrano MD [facility] Administered by: Katalina Fowler RN on 08/02/24 16:36 Dose Route Admin Location Dispensed Lot Number Expiration Date [facility] Mathematics Improvement Teacher 0.5 mL IM Left Deltoid 0.5 mL [id number] 10/04/25 3332-2219-50 [employer] VIS Given Date VIS Provided VIS Publication Date 08/02/24 Single Vaccine 21 Eligibility Eligibility Date Funding Source Not [facility] Eligible 08/02/24 Private Coding Level of Care Code Est Pt Level 3 (45658) Est Pt Prev Care >65y(18238) Diagnoses Adult general medical exam Z00.00 Lumbar pain M54.50 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; F02.A3 Dementia type: Alzheimer's Alzheimer's disease onset: early onset Dementia severity: mild Dementia behavioral or psychological symptom: with mood disturbance 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 Additional Codes MURRAY-7 Assessment Billing - MURRAY-7 Assessment Tool: MURRAY-7 Assessment 95790 ([id number]) PHQ-9 - 52641 - PHQ-9 Billing: Yes ([id number]) Time Spent (min) 33 Assessment & Plan Assessment & Plan (1) Adult general medical exam: Code(s): Z00.00 - Encounter for general adult medical examination without abnormal findings Category: Medical (2) Lumbar pain: Code(s): M54.50 - Low back pain, unspecified Category: Medical (3) Dementia: Code(s): F03.90 - Unspecified dementia, unspecified severity, without behavioral disturbance, psychotic disturbance, mood disturbance, and anxiety Category: Medical Qualifiers: Dementia type: Alzheimer's Alzheimer's disease onset: early onset Dementia severity: mild Dementia behavioral or psychological symptom: with mood disturbance Qualified Code(s): G30.0 - Alzheimer's disease with early onset; F02.A3 - Dementia in other diseases classified elsewhere, mild, with mood disturbance (4) Mild recurrent major depression: Code(s): F33.0 - Major depressive disorder, recurrent, mild Category: Medical Plan Administer the pneumococcal vaccine today, and continue monitoring chronic conditions with current medication regimen. Hyperlipidemia will continue to be managed with atorvastatin, while hypothyroidism is addressed with levothyroxine. The need for tamsulosin will be reviewed further due to possible prostate concerns. If lumbar pain persists, the consideration of flexeril and imaging is sensible for symptom management. Ongoing dementia treatment is supported with memantine, and laboratory tests are advisable for monitoring medication impact. Encourage increased water intake to address constipation from vitamin D. Patient was informed and verbally consented to the use of an ambient scribe for clinic note documentation during this visit. I discussed the importance of the pneumococcal vaccine, given the patient's age and previous vaccination history. We reviewed his medication regimen, emphasizing the continuation of current treatment for chronic conditions like hyperlipidemia and hypothyroidism. I informed them about reassessing the necessity for tamsulosin, given its unknown status. I recommended potential reintroduction of muscle relaxants for lumbar pain management should symptoms persist and suggested possible imaging. We talked about dementia management with memantine. I mentioned the significance of laboratory tests to evaluate treatment efficacy and adverse effects. Additionally, we discussed mitigating the side effects of vitamin D by drinking more water. Orders: Orders Lipid Panel Today E78.5 - Hyperlipidemia, unspecified Thyroid Stimulating Hormone Today E03.9 - Hypothyroidism, unspecified Comprehensive Tea. Panel Fast Today Z00.00 - Encounter for general adult medical examination without abnormal findings XR lumbar spine 2-3V Today M54.50 - Low back pain, unspecified Pneumococcal 20 Immunization Today Z23 - Encounter for immunization Vitamin D 25-OH Total Today E55.9 - Vitamin D deficiency, unspecified Medications: Refilled cyclobenzaprine 10 mg PO TID PRN 12 tabs 0RF muscle spasm 4 days M54.50 - Low back pain, unspecified Patient Instructions: - Receive pneumococcal vaccine as scheduled. - Continue taking current medications as directed. - Monitor memory changes and report any concerns promptly. - Drink plenty of water to prevent constipation from vitamins. - Take flexeril if prescribed again and monitor lumbar pain for frequency or severity changes. - Schedule lab tests as advised for medication monitoring. - Follow up for prostate health status.
--- OUTSIDE RECORDS SUMMARY | 2024-08-02 19:09 | XMS_ITS | Encounter Summary ---
Author Organization [facility] Address [address] [place] [address] 7 [place] [address] Care Team Providers Care Automotive Worker Foreman Name Role Phone Unavailable Primary Care Provider Unavailabl e Reason for Visit * Reason Comments Dentures Encounter Details Date Type Department Care Team ([facility] st Contact Info) Description 07/06/2024 10:00 AM EST Office Visit [facility] ADULT DENTAL [address] [place], [place] [phone] Antonio Norris DDS [address] [place] [address] Ill-fitting dentures (Primary Dx) Social History Tobacco Use Types Packs/Day Years Used Date Smoking Tobacco: Never Passive Smoke Exposure: Never Smokeless Tobacco: Never Alcohol Use Standard Drinks/Week Comments Never 0 (1 standard drink = 0.6 oz pur e alcohol) Sex and Gender Information Value Date Recorded Sex Assigned at Male 04/06/2022 10:17 AM EDT Legal Sex Male 10:17 AM EDT Gender Identity Male 06/30/2023 1:27 PM EST Sexual Orientation Straight 06/30/2023 1: 27 PM EST documented as of this encounter Last Filed Vital Signs Vital Sign Reading Time Taken Comments Blood Pressure 100/68 07/06/2024 9:54 AM EST Pulse - - Temperature - - Respiratory Rate - - Oxygen Saturation - - Inhaled Oxygen Concentration - - Weight - - Height - - Body Mass Index - - documented in this encounter Progress Notes * Antonio Norris DDS - 07/06/2024 10:00 AM EST Dental procedures in this visit [id number] - DENTURE ADJUSTMENT Patient ID: Phani Pulido is a 74 y.o. male. Time Out: Timeout Date: 07/06/24 (dentur adjustment), Timeout Time: 0954 Location: [facility] Tooth: Maxilla and Mandible more adjustments needed on mandible . Procedure: Dentures Verified the above with patient, health assistant, and provider. Confirmed via patient's chart, intraorally and by radiographs. Bean Snapper: not applicable Chief Complaint Patient presents with Dentures Medical Hx: Vitals: Blood pressure 100/68. Patient presents for follow up. Objective: Adjust pressure points on right lingual and retromolar regions Recommendations: Use denture adhesive on both and practice biting with soft foods, return for more adjustment as needed Patient tolerated procedure well. All questions answered. Dismissed in good condition. NV: 6 mos recall Sleep Technologist: Melina Michelle Dentist: Antonio Norris DDS documented in this encounter Plan of Treatment Not on file documented as of this encounter Procedures Procedure Name Priority Date/Time Associated Diagnosis Comments DENTURE ADJUSTMENT Routine 07/06/2024 10:00 AM EST documented in this encounter Visit Diagnoses Diagnosis Ill-fitting dentures- Primary documented in this encounter
--- OUTSIDE RECORDS SUMMARY | 2024-08-02 19:09 | XMS_ITS | Clinical Summary ---
Author Organization [employer] [facility] Address [address] [facility] 7t [place] [address] Care Team Providers Care Varnish Blender Name Role Phone Unavailable Primary Care Provider Unavailabl e Allergies No known active allergies Medications memantine (Namenda) 10 MG tablet Take by mouth. Active traZODone (Desyrel) 100 MG tablet Take 100 mg by mouth at bedtime. Active QUEtiapine (SEROquel) 25 MG tablet Take 25 mg by mouth at bedtime. Active sertraline (Zoloft) 100 MG tablet Take by mouth. Active dorzolamide-glenn lol (Cosopt) 2-0.5 % ophthalmic solution 1 drop 2 times daily. Active latanoprost (Xalatan) 0.005 % ophthalmic solution 1 drop at bedtime. Active levothyroxine (Tirosint) 137 MCG capsule Take by mouth before breakfast. Active aspirin 81 MG EC tablet Take 81 mg by mouth in the morning. Active atorvastatin (Lipitor) 20 MG tablet Take 20 mg by mouth in the morning. Active Dutasteride-Tams ulosin HCl 0.5-0.4 MG capsule Take by mouth. 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 Encounters Date Type Department Care Team Description 07/06/2024 10:00 AM EST Office Visit [facility] ADULT DENTAL [address] [place], [place] [phone] Antonio Norris DDS Ill-fitting dentures (Primary Dx) from Last 3 Months Social History Tobacco Use Types Packs/Day Years Used Date Smoking Tobacco: Never Passive Smoke Exposure: Never Smokeless Tobacco: Never Tobacco Cessation:Counseling Given: No Alcohol Use Standard Drinks/Week Comments Never 0 (1 standard drink = 0.6 oz pur e alcohol) Sex and Gender Information Value Date Recorded Sex Assigned at Male 04/06/2022 10:17 AM EDT Legal Sex Male 10:17 AM EDT Gender Identity Male 06/30/2023 1:27 PM EST Sexual Orientation Straight 06/30/2023 1: 27 PM EST Last Filed Vital Signs Vital Sign Reading Time Taken Comments Blood Pressure 100/68 07/06/2024 9:54 AM EST Pulse - - Temperature - - Respiratory Rate - - Oxygen Saturation - - Inhaled Oxygen Concentration - - Weight - - Height - - Body Mass Index - - Plan of Treatment Health Maintenance Due Date Last Done Comments CT Colonography 1952 Colonoscopy 1952 Colorectal Cancer Screening 1952 Dental Prophylaxis 1952 Dental X-Ray: Bitewings 1952 Depression Screening 1952 FIT DNA/Cologuard 1952 FIT 1952 FOBT 1952 Lipid Panel 1952 SDOH Screening 1952 Sigmoidoscopy 1952 Alcohol/Substance Use Screening 1964 Hepatitis C Screening 1970 Zoster Vaccines (1 of 2) 2002 Pneumococcal Vaccine: 50+ Years (2 of 2 - PCV) 07/25/2014 07/25/2013, 06/13/2009 COVID-19 Vaccine ( - season) 2024 Influenza Vaccine (#1) 2024 , 04/01/2022, 06/08/2018, Additional history exists Dental Oral Exam 02/25/2024 08/24/2023 Tobacco Screening 07/06/2025 07/06/2024 Dental X-Ray: Full Mouth 08/24/2026 08/24/2023 RSV Patients and Patients Aged 60 years or older (1 - 1-dose 75+ series) 2027 DTaP/Tdap/Td Vaccines (3 - Td or Tdap) 01/01/2031 01/01/2021, 02/01/2012, 01/06/2006 HIB Vaccines Aged Out No longer eligi ble based on patient's age to complete this topic HPV Vaccines Aged Out No longer eligi ble based on patient's age to complete this topic Hepatitis A Vaccines Aged Out No long er eligible based on patient's age to complete this topic Hepatitis B Vaccines Aged Out No long er eligible based on patient's age to complete this topic IPV Vaccines Aged Out No longer eligi ble based on patient's age to complete this topic Meningococcal Vaccine Aged Out No leandro julio cesar eligible based on patient's age to complete this topic RSV under 20 months Aged Out No longe r eligible based on patient's age to complete this topic Rotavirus Vaccines Aged Out No longer eligible based on patient's age to complete this topic Procedures Procedure Name Priority Date/Time Associated Diagnosis Comments DENTURE ADJUSTMENT Routine 07/06/2024 10 :00 AM EST PANORAMIC RADIOGRAPHIC IMAGE Routine 08/24/2023 1:30 PM EDT PERIODIC ORAL EVALUATION - ESTABLISHED PATIENT Routine 08/24/2023 1:30 PM EDT from Last 3 Months or Most Recently Relevant to Health Maintenance Insurance DENTAL - [facility] * Guarantor: Phani Pulido Account Type Relation to Patient Date of Phone Billing Address Personal/Family Self CHANTELLE JULIEN [address] [id number]
--- OUTSIDE RECORDS SUMMARY | 2024-08-02 19:09 | XMS_ITS | Encounter Summary ---
Author Organization [employer] [facility] Address [address] [place] [address] 7t [place] [address] Care Team Providers Care Die Maker Electronic Name Role Phone Unavailable Primary Care Provider Unavailabl e Reason for Visit * Reason Onset Date Comments appt 10/18/2023 Encounter Details Date Type Department Care Team ([facility] st Contact Info) Description 10/18/2023 Telephone [facility] ADULT DENTAL [address] [place], [place] [phone] Antonio Norris DDS [address] [place], [place] [phone] appt Social History Tobacco Use Types Packs/Day Years [...] PM EST documented as of this encounter Miscellaneous Notes * Telephone Encounter - Dolores Morris - 10/18/2023 2:40 PM EDT Patient indicates that he was told to call back within a month for an appt with Dr. Norris, He would like to be scheduled DR documented in this encounter Plan of Treatment Not on file documented as of this encounter Visit Diagnoses Not on filedocumented in this encounter
== END 2024-08-02 16:42 | disposition home or self-care (01) ==
PROVIDERS: PCP Internal Medicine; Visit Provider Internal Medicine
DX: Z00.00 Encounter for general adult medical examination without abnormal findings (principal); M54.50 Low back pain, unspecified; G30.0 Alzheimer's disease with early onset; F02.A3 Dementia in other diseases classified elsewhere, mild, with mood disturbance; F33.0 Major depressive disorder, recurrent, mild; Z23 Encounter for immunization

== ENCOUNTER 2024-08-02 15:36 | Outpatient (REF) | payer OTHER, SELFPAY ==
[2024-08-02 17:36] LABS: Alanine Aminotransferase 42 U/L (0-40); Albumin Level 4.4 g/dL (3.5-5.0); Alkaline Phosphatase 99 U/L (39-117); Anion Gap 10 (12-20); Aspartate Amino Transferase 39 U/L (5-37); Blood Urea Nitrogen 22 mg/dL (9-16); Calcium 9.4 mg/dL (8.4-10.2); Carbon Dioxide 26 mmol/L (22-29); Chloride 107 mmol/L (96-108); Cholesterol 272 mg/dL (<200); Estimated Glomerular Filt Rate > 60; Glucose Fasting 75 mg/dL (60-99); HDL Cholesterol 45 mg/dL (>40); LDL Cholesterol Calculated 209 mg/dL (<100); Potassium 4.3 mmol/L (3.3-5.1); Sodium 139 mmol/L (135-145); Total Protein 7.9 g/dL (6.5-8.0); Triglycerides 91 mg/dL (<150)
[2024-08-02 17:53] LABS: Thyroid Stimulating Hormone 22.08 uIU/mL (0.32-4.0)
--- OUTSIDE RECORDS SUMMARY | 2024-08-02 19:54 | XMS_ITS | Clinical Summary ---
Author Organization [employer] [facility] Address [address] [facility] 7t [place] [address] Care Team Providers Care Domestic Helper Name Role Phone Unavailable Primary Care Provider [...] Description 07/06/2024 10:00 AM EST Office Visit [facility] ADULT DENTAL [address] [place], [place] [phone] Antonio Norris DDS Ill-fitting dentures (Primary Dx) [...] Relevant to Health Maintenance Insurance DENTAL - [facility] * Guarantor: Phani Pulido Account Type Relation to Patient Date of Phone Billing Address Personal/Family Self CHANTELLE JULIEN [address] [id number]
--- OUTSIDE RECORDS SUMMARY | 2024-08-02 19:54 | XMS_ITS | Encounter Summary ---
Author Organization [employer] [facility] Address [address] [place] [address] 7 [place] [address] Care Team Providers Care Personnel Psychologist Name Role Phone Unavailable Primary Care Provider Unavailabl e Reason for Visit * Reason Comments Dentures Encounter Details Date Type Department Care Team ([facility] st Contact Info) Description 07/06/2024 10:00 AM EST Office Visit [facility] ADULT DENTAL [address] [place], [place] [phone] Antonio Norris DDS [address] [place] [address] Ill-fitting dentures (Primary Dx) Social History Tobacco [...] 07/06/24 (dentur adjustment), Timeout Time: 0954 Location: [facility] Tooth: Maxilla and Mandible more adjustments needed on mandible . Procedure: Dentures Verified the above with patient, therapeutic assistant, and provider. Confirmed via patient's chart, intraorally and by radiographs. Radiochemical Technician: not applicable Chief Complaint Patient presents with Dentures Medical Hx: Vitals: Blood pressure 100/68. Patient presents for follow up. Objective: Adjust pressure points on right lingual and retromolar regions Recommendations: Use denture adhesive on both and practice biting with soft foods, return for more adjustment as needed Patient tolerated procedure well. All questions answered. Dismissed in good condition. NV: 6 mos recall Hadoop Engineer: Melina Michelle Dentist: Antonio Norris DDS documented in this encounter Plan of Treatment Not on file documented as of this encounter Procedures Procedure Name Priority Date/Time Associated Diagnosis Comments DENTURE ADJUSTMENT Routine 07/06/2024 10:00 AM EST documented in this encounter Visit Diagnoses Diagnosis Ill-fitting dentures- Primary documented in this encounter
--- OUTSIDE RECORDS SUMMARY | 2024-08-02 19:54 | XMS_ITS | Encounter Summary ---
Author Organization [employer] [facility] Address [address] [place] [address] 7t [place] [address] Care Team Providers Care Quality Assurance Calibrator Name Role Phone Unavailable Primary Care Provider Unavailabl e Reason for Visit * Reason Onset Date Comments appt 10/18/2023 Encounter Details Date Type Department Care Team ([facility] st Contact Info) Description 10/18/2023 Telephone [facility] ADULT DENTAL [address] [place], [place] [phone] Antonio Norris DDS [address] [place], [place] [phone] appt Social History Tobacco Use Types Packs/Day [...]
== END 2024-08-02 15:37 | disposition home or self-care (01) ==
LOC: HO.LAB 15:36
PROVIDERS: PCP Internal Medicine; Visit Provider Internal Medicine
DX: Z00.01 Encounter for general adult medical examination with abnormal findings (principal); Z23 Encounter for immunization; M54.50 Low back pain, unspecified; G30.0 Alzheimer's disease with early onset; F02.A3 Dementia in other diseases classified elsewhere, mild, with mood disturbance; F33.0 Major depressive disorder, recurrent, mild; E03.9 Hypothyroidism, unspecified; E55.9 Vitamin D deficiency, unspecified; E78.5 Hyperlipidemia, unspecified; K21.9 Gastro-esophageal reflux disease without esophagitis; Z79.82 Long term (current) use of aspirin; Z79.899 Other long term (current) drug therapy
CPT/HCPCS: 36415; 80053; 80061; 82306; 84443; 90471; 90677; 96127; 99212; 99397

== ENCOUNTER 2024-09-22 10:45 | Outpatient (REF) | payer OTHER, SELFPAY ==
--- NOTE | ~2024-09-22 | XR_ITS ---
EXAMINATION: XR LUMBOSACRAL SPINE CLINICAL INFORMATION: M54.50 - Low back pain, unspecified COMPARISON: None available. TECHNIQUE: Three views of the lumbosacral spine. FINDINGS: Levoconvex curvature apex at L3. Multilevel marginal osteophyte formation and endplate sclerosis more conspicuous at L4-5 and L5-S1 levels as well as L1-2. Hypertrophy of the facet joints at L4-5 and L5-S1. No acute cortical disruption. Questionable grade 1 retrolisthesis versus artifactually placed on the lateral projection at L2-3 and L3-4 levels. XR/XR lumbar spine 2-3V IMPRESSION: Multilevel spondylosis and levoconvex scoliosis with questionable grade 1 retrolisthesis at L2-3 and L3-4 levels. Electronically signed by: Clarence Campbell MD 09/22/2024 11:45 AM EDT
--- OUTSIDE RECORDS SUMMARY | 2024-09-22 11:48 | XMS_ITS | Encounter Summary ---
Author Organization [employer] [facility] Address [address] [place] [address] [address]t [place] [address] Care Team Providers Care Filling Station Laborer Name Role Phone Unavailable Primary Care Provider Unavailabl e Reason for Visit * Reason Onset Date Comments appt 10/18/2023 Encounter Details Date Type Department Care Team ([facility] st Contact Info) Description 10/18/2023 Telephone [facility] ADULT DENTAL [address] [place], [place] [phone] Antonio Norris DDS [address] [place], [place] [phone] appt Social History Tobacco Use Types Packs/Day [...]
--- OUTSIDE RECORDS SUMMARY | 2024-09-22 11:48 | XMS_ITS | Encounter Summary ---
Author Organization [employer] [facility] Address [address] [place] [address] 7t [place] [address] Care Team Providers Care Manager Market Intelligence Name Role Phone Unavailable Primary Care Provider Unavailabl e Reason for Visit * Reason Comments Dentures Adj Encounter Details Date Type Department Care Team (Late st Contact Info) Description 09/21/2024 10:00 AM EDT Office Visit [facility] ADULT DENTAL [address] [place] [address] Antonio Norris DDS [address] [place] [address] Ill-fitting dentures (Primary Dx) Social History Tobacco [...] PM EST documented as of this encounter Progress Notes * Antonio Norris DDS - 09/21/2024 10:00 AM EDT Dental procedures in this visit D9450 - CASE PRESENTATION, DETAILED AND EXTENSIVE TREATMENT PLANNING (Completed) Service provider: Antonio Norris DDS Billing provider: Antonio Norris DDS D5421 - ADJUST PARTIAL DENTURE - MAXILLARY (Completed) Service provider: Antonio Norris DDS Billing provider: Antonio Norris DDS D0120 - PERIODIC ORAL EVALUATION - ESTABLISHED PATIENT (Completed) Service provider: Antonio Norris DDS Billing provider: Antonio Norris DDS Patient ID: Phani Pulido is a 74 y.o. male. Time Out: Timeout Date: 09/21/24 (upper and lower adj), Timeout Time: 09 Location: [facility] Tooth: Maxilla and Mandible Procedure: Exam Verified the above with patient, virtual assistant, and provider. Confirmed via patient's chart, intraorally and by radiographs. Ore Crusher: not applicable Chief Complaint Patient presents with Dentures Adj Medical Hx: Vitals: There were no vitals taken for this visit. Past Medical History: Diagnosis Date Anxiety Arthritis Hypertension Medications: Outpatient Encounter Medications as of 09/21/2024 Medication Sig Dispense Refill aspirin 81 MG EC tablet Take 81 mg by mouth in the morning. atorvastatin (Lipitor) 20 MG tablet Take 20 mg by mouth in the morning. dorzolamide-timolol (Cosopt) 2-0.5 % ophthalmic solution 1 drop 2 times daily. Dutasteride-Tamsulosin HCl 0.5-0.4 MG capsule Take by mouth. latanoprost (Xalatan) 0.005 % ophthalmic solution 1 drop at bedtime. levothyroxine (Tirosint) 137 MCG capsule Take by mouth before breakfast. memantine (Namenda) 10 MG tablet Take by mouth. QUEtiapine (SEROquel) 25 MG tablet Take 25 mg by mouth at bedtime. sertraline (Zoloft) 100 MG tablet Take by mouth. traZODone (Desyrel) 100 MG tablet Take 100 mg by mouth at bedtime. No facility-administered encounter medications on file as of 09/21/2024. Subjective: Pain: mild Duration: While eating Objective: Tooth: Edentulous left side ridge Radiographs Taken: No Radiographic Findings: N/A Clinical Findings: Irritation and slight laceration on left maxillae ridge Swelling: Tenderness Endo Testing: N/A Perio: Laceration Other Findings: Pressure points Diagnosis: Ill-fitting denture Assessment/Plan: EXAM Adjust max. denture left flange, completed Prescriptions: NO Pt tolerated procedure well, all questions answered. Dismissed in good condition. NV: 6 mos recall Iso Coordinator: Denise Michelle Dentist: Antonio Norris DDS documented in this encounter Plan of Treatment Not on file documented as of this encounter Procedures Procedure Name Priority Date/Time Associated Diagnosis Comments PERIODIC ORAL EVALUATION - ESTABLISHED PATIENT Routine 09/21/2024 10:00 AM EDT CASE PRESENTATION, DETAILED AND EXTENSIVE TREATMENT PLANNING Routine 09/21/2024 10:00 AM EDT ADJUST PARTIAL DENTURE - MAXILLARY Routine 09/21/2024 10:00 AM EDT documented in this encounter Visit Diagnoses Diagnosis Ill-fitting dentures- Primary documented in this encounter
--- OUTSIDE RECORDS SUMMARY | 2024-09-22 11:48 | XMS_ITS | Clinical Summary ---
Author Organization [employer] [facility] Address [address] [facility] 7t [place] [address] Care Team Providers Care Tipple Engineer Name Role Phone Unavailable Primary Care Provider [...] Encounters Date Type Department Care Team Description 09/21/2024 10:00 AM EDT Office Visit [facility] ADULT DENTAL [address] [place] [address] Antonio Norris DDS Ill-fitting dentures (Primary Dx) 07/06/2024 10:00 AM EST Office Visit [facility] ADULT DENTAL [address] [place] [address] Antonio Norris DDS Ill-fitting dentures (Primary Dx) [...] 1970 Zoster Vaccines (1 of 2) 2002 COVID-19 Vaccine ( season) 2024 Influenza Vaccine (#1) 2024 , 04/01/2022, 06/08/2018, Additional history exists Dental Oral Exam 03/24/2025 09/21/2024, 08/24/2023 Tobacco Screening 09/21/2025 09/21/2024 Dental X-Ray: Full Mouth 08/24/2026 08/24/2023 RSV Patients and Patients Aged 60 years or older (1 - 1-dose 75+ series) 2027 DTaP/Tdap/Td Vaccines (3 - Td or Tdap) 01/01/2031 01/01/2021, 02/01/2012, 01/06/2006 Pneumococcal Vaccine: 50+ Years Completed 08/02/2024, 07/25/2013, 06/13/2009 HIB Vaccines Aged Out No longer eligi [...] ESTABLISHED PATIENT Routine 09/21/2024 10:00 AM EDT ADJUST PARTIAL DENTURE - MAXILLARY Routine 09/21/2024 10:00 AM EDT CASE PRESENTATION, DETAILED AND EXTENSIVE TREATMENT PLANNING Routine 09/21/2024 10:00 AM EDT DENTURE ADJUSTMENT Routine 07/06/2024 10 :00 AM EST PANORAMIC RADIOGRAPHIC IMAGE Routine 08/24/2023 1:30 PM EDT from Last 3 Months or Most Recently Relevant to Health Maintenance Insurance DENTAL [facility] * Guarantor: Phani Pulido Account Type Relation to Patient Date of Phone Billing Address Personal/Family Self [address] [place], [place] * Guarantor: Phani Pulido Account Type Relation to Patient Date of Phone Billing Address Personal/Family Self [address] [place], [place] * Guarantor: Phani Pulido Account Type Relation to Patient Date of Phone Billing Address Personal/Family Self [address] [place], [place]
[2024-09-22 12:15] LABS: Thyroid Stimulating Hormone 1.15 uIU/mL (0.32-4.0)
== END 2024-09-22 10:46 | disposition home or self-care (01) ==
LOC: HO.XRAY 10:45
PROVIDERS: PCP Internal Medicine; Visit Provider Internal Medicine
DX: M54.50 Low back pain, unspecified (principal); E03.9 Hypothyroidism, unspecified
CPT/HCPCS: 36415; 72100; 84443

== ENCOUNTER → 2024-09-22 11:17 | Outpatient (BNV) | payer OTHER, SELFPAY | PROVIDERS: PCP Internal Medicine; Visit Provider Radiology Diagnostic Radiology | DX: M54.50 Low back pain, unspecified (principal); M41.86 Other forms of scoliosis, lumbar region; M47.896 Other spondylosis, lumbar region | CPT/HCPCS: 72100 ==

== ENCOUNTER 2024-12-07 13:31 | Outpatient (REF) | payer OTHER, SELFPAY ==
--- OUTSIDE RECORDS SUMMARY | 2024-12-07 13:40 | XMS_ITS | Encounter Summary ---
Author Organization [employer] [facility] Address [address] [place] [address] 7t [place] [address] Care Team Providers Care Bee Rancher Name Role Phone Unavailable Primary Care Provider Unavailabl e Reason for Visit * Reason Onset Date Comments appt 10/18/2023 Encounter Details Date Type Department Care Team ([facility] st Contact Info) Description 10/18/2023 Telephone [facility] ADULT DENTAL [address] [place], [place] [phone] Antonio Norris DDS [address] [place], [place] [phone] appt Social History Tobacco Use Types Packs/Day [...]
[2024-12-07 14:19] LABS: Hemoglobin A1C 137.8613 umol/L; Total Hemoglobin (HGBA1C) 3711.2721 umol/L
[2024-12-07 14:48] LABS: Alanine Aminotransferase 43 U/L (0-40); Albumin Level 4.5 g/dL (3.5-5.0); Alkaline Phosphatase 94 U/L (39-117); Anion Gap 8 (12-20); Aspartate Amino Transferase 36 U/L (5-37); Blood Urea Nitrogen 15 mg/dL (9-16); Calcium 9.1 mg/dL (8.4-10.2); Carbon Dioxide 28 mmol/L (22-29); Chloride 108 mmol/L (96-108); Cholesterol 150 mg/dL (<200); Estimated Glomerular Filt Rate > 60; HDL Cholesterol 44 mg/dL (>40); Potassium 4.2 mmol/L (3.3-5.1); Sodium 140 mmol/L (135-145); Total Protein 6.9 g/dL (6.5-8.0); Triglycerides 73 mg/dL (<150)
[2024-12-07 15:01] LABS: Thyroid Stimulating Hormone 8.78 uIU/mL (0.32-4.0)
== END 2024-12-07 13:32 | disposition home or self-care (01) ==
LOC: HO.LAB 13:31
PROVIDERS: PCP Internal Medicine; Visit Provider Dietitian, Registered
DX: F33.3 Major depressive disorder, recurrent, severe with psychotic symptoms (principal); F02.80 Dementia in other diseases classified elsewhere, unspecified severity, without behavioral disturbance, psychotic disturbance, mood disturbance, and anxiety
CPT/HCPCS: 36415; 80053; 80061; 83036; 84443

== ENCOUNTER 2025-01-16 10:41 | Outpatient (AMB) | payer OTHER, SELFPAY ==
--- NOTE | 2025-01-16 10:42 | MHC.PC.OV ---
Vital Signs 01/16/25 10:46 Height 5 ft 5 in Weight 133 lb 2 oz BMI 22.2 BP 114/60 Blood Pressure Location Lt brachial Pulse 67 Pulse Source Pulse Oximeter Pulse Oximetry (%) 97 Oxygen Delivery Method Room Air Intake Visit Reasons: 4 month f/u Pan Dumper Required: No Accompanied by: Self / Same As Patient Allergies No Known Allergies (No Known Allergies*) Allergy (Verified 01/16/25 10:57) Medication List - Last Reconciled 01/16/25 by Dea Serrano MD aspirin (Adult Aspirin Regimen) 81 mg PO DAILY 90 days atorvastatin 40 mg PO BEDTIME 90 days back brace As directed cane As directed cholecalciferol (vitamin D3) 25 mcg PO DAILY 90 days cyclobenzaprine 10 mg PO TID PRN 4 days Knee brace As directed levothyroxine 150 mcg PO DAILY 90 days memantine 10 mg PO BID 90 days omeprazole 20 mg PO DAILY quetiapine mg PO sennosides (Natural Senna Laxative) 17.2 mg (2 x 8.6 mg) PO BEDTIME sertraline 50 mg PO QAM Shower Chair As directed tamsulosin 0.4 mg PO DAILY trazodone 100 mg PO BEDTIME vitamin E (dl, acetate) 360 mg PO DAILY Tobacco use date assessed: 01/16/25 Fall risk assessment: No Falls in past year Last assessed Fall Risk: 01/16/25 Dental Screening Dental Screen Date: 01/16/25 Did you have a dental visit in the last 12 months?: No Did you have a dental problem in the last 6 months where you did not have access to dental care?: No Was dental information given to patient?: No HPI HPI Comments History of Present Illness Details The patient is a 74-year-old male presenting with multiple chronic conditions, including hypertension, hyperlipidemia, hypothyroidism, and depression with anxiety. Hypertension has been well-controlled, as indicated by recent assessments. Hyperlipidemia has shown improvement with atorvastatin therapy, reducing cholesterol levels significantly from 272 mg/dL in July to 150 mg/dL recently. The patient is adherent to atorvastatin, which has contributed to this improvement. Hypothyroidism remains a concern, with recent adjustments in levothyroxine dosage from 137 mcg to 150 mcg due to suboptimal control. The thyroid function will be reassessed six weeks post-adjustment, around the first week of February. The patient also experiences depression with anxiety, managed with sertraline, and is under psychiatric care. A prostate condition was recently evaluated by a specialist, though specific details were not discussed. Chronic constipation is managed with dietary adjustments and medications like DocuSafe. Dementia is present, with the patient's sister acting as the primary historian and caregiver. Lumbar degenerative disease is managed with cyclobenzaprine as needed, with no reported side effects. [facility] Medical History (Updated 01/16/25 @ 11:47 by Dea Serrano MD) Hearing loss Screening for prostate cancer Screening for diabetes mellitus Cough Dizziness Long-term use of aspirin therapy Glaucoma Insomnia Essential hypertension Surgical History History of biopsy History of colonoscopy Family History Father Prostate cancer Mother Chronic mental illness Osteoporosis Maternal Aunt Diabetes Hypertension Maternal Uncle Diabetes Hypertension Sister Liver failure Family/Other Chronic mental illness Brother No problems noted. Social History Housing: Apartment Alcohol intake: former Patient Tobacco Use Status: Former Tobacco user Tobacco use type: Cigarette e-Cigarette/Vaping Use: Never Used Second Hand Smoke Exposure: No service: No Current occupational status: disabled Cognitive needs: No Hearing needs: No Vision needs: No Questionnaire PHQ-9 Over the last 2 weeks, how often have you been bothered by any of the following problems? 1. Little interest or pleasure in doing things: more than half the days 2. Feeling down, depressed, or hopeless: several days 3. Trouble falling or staying asleep, or sleeping too much: not at all 4. Feeling tired or having little energy: several days 5. Poor appetite or overeating: more than half the days 6. Feeling bad about yourself - or that you are a failure or have let yourself or your family down: not at all 7. Trouble concentrating on things, such as reading the newspaper or watching television: more than half the days 8. Moving or speaking so slowly that other people could have noticed. Or the opposite - being so fidgety or restless that you have been moving around a lot more than usual: several days 9. Thoughts that you would be better off or of hurting yourself in some way: not at all Total score: 9 Depression Screening Interpretation: Positive Depression Screening Follow-up: Existing condition and Follow-up Visit Requested Depression Screening Done: Yes 25126 - PHQ-9 Billing: Yes Source: Developed by Drs. Hank Craft, Mckayla Burgos, Martinez Sena and colleagues, with an educational taco from [employer]. Thrive Questionnaire Date Thrive assessed: 01/16/25 I am a: Patient What is your living situation today?: I have a steady place to live THRIVE Score: 0 MURRAY-7 AMB Questionnaire MURRAY-7 Date MURRAY - 7 assessed: 01/16/25 Source: Developed by Drs. Hank Craft, Mckayla Burgos, Martinez Sena and colleagues, with an educational taco from [employer]. Review of Systems Const All systems reviewed & are unremarkable except as noted in HPI and below Card Denies chest pain at rest, Denies chest pain with activity, Denies edema, Denies irregular heart rhythm, Denies claudication, Denies dyspnea, Denies dyspnea on exertion, Denies orthopnea, Denies paroxysmal nocturnal dyspnea and Denies slow heart rate Resp Denies cough, Denies dyspnea and Denies dyspnea on exertion GI Denies abdominal pain, Denies change in bowel habits, Denies excessive flatus, Denies nausea and Denies vomiting Physical exam (Primary Care) Vital Signs: Last Vital Signs Pulse 67 01/16/25 10:46 BP 114/60 01/16/25 10:46 Pulse Ox 97 01/16/25 10:46 Oxygen Delivery Method Room Air 01/16/25 10:46 BMI result Body Mass Index 22.2 Tobacco/Smoking Status: Tobacco use Status Tobacco use date assessed 01/16/25 01/16/25 10:52 Patient Tobacco Use Status Former Tobacco user 01/16/25 10:44 Tobacco use type Cigarette 01/16/25 10:44 e-Cigarette/Vaping Use Never Used 01/16/25 10:44 PHQ-9: PHQ-9 Score PHQ-9: Total score 9 01/16/25 11:01 Depression Screening Interpretation: Positive Depression Screening Follow-up: Existing condition and Follow-up Visit Requested Thrive Assessment: Date of Thrive Assessment Date Thrive assessed 08/12/25 08/12/25 10:44 Resp Effort & Inspection: normal respiratory effort Auscultation: clear to auscultation bilaterally Cardio Jugular venous distension: no JVD Rate: regular rate Rhythm: regular rhythm Heart sounds: S1 normal heart sound present and S2 normal heart sound present Extrem General: Yes full ROM Coding Level of Care Code Est Pt Level 4 (49436) Complex EM visit Add On G2211 Diagnoses 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 Essential hypertension I10 Dyslipidemia E78.5 Hypothyroidism E03.9 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; 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 Dementia type: Alzheimer's Alzheimer's disease onset: early onset Dementia severity: mild Dementia behavioral or psychological symptom: with mood disturbance Lumbar pain M54.50 Chronic idiopathic constipation K59.04 Additional Codes PHQ-9 - 68098 - PHQ-9 Billing: Yes ([id number]) Time Spent (min) 24 Assessment & Plan Assessment & Plan (1) Mild recurrent major depression: Code(s): F33.0 - Major depressive disorder, recurrent, mild Category: Medical (2) Essential hypertension: Code(s): I10 - Essential (primary) hypertension Category: Medical (3) Dyslipidemia: Code(s): E78.5 - Hyperlipidemia, unspecified Category: Medical (4) Hypothyroidism: Code(s): E03.9 - Hypothyroidism, unspecified Category: Medical (5) Dementia: Code(s): F03.90 - Unspecified dementia, unspecified severity, without behavioral disturbance, psychotic disturbance, mood disturbance, and anxiety Category: Medical Qualifiers: Dementia type: Alzheimer's Alzheimer's disease onset: early onset Dementia severity: mild Dementia behavioral or psychological symptom: with mood disturbance Qualified Code(s): G30.0 - Alzheimer's disease with early onset; F02.A3 - Dementia in other diseases classified elsewhere, mild, with mood disturbance (6) Lumbar pain: Code(s): M54.50 - Low back pain, unspecified Category: Medical (7) Chronic idiopathic constipation: Code(s): K59.04 - Chronic idiopathic constipation Category: Medical Plan The patient's hypertension is well-controlled, and no changes are needed at this time. Hyperlipidemia management with atorvastatin has been effective, and the patient should continue the current regimen. For hypothyroidism, the patient should undergo thyroid function tests in the first week of February to evaluate the effectiveness of the increased levothyroxine dosage. Depression with anxiety is managed with sertraline, and the patient should continue psychiatric follow-up. The prostate condition requires no immediate intervention, but the patient should maintain regular follow-ups with the specialist. Chronic constipation is being managed with dietary changes and DocuSafe, and the patient should continue this regimen. Dementia care involves support from the patient's sister, and no changes are needed in the current management plan. Lumbar degenerative disease is managed with cyclobenzaprine as needed, and the patient should continue this approach. Orders: Orders Thyroid Stimulating Hormone Today E03.9 - Hypothyroidism, unspecified Medications: New docusate sodium 100 mg PO DAILY PRN 90 caps 1RF constipation 90 days Changed From vitamin E (dl, acetate) 360 mg PO DAILY To vitamin E (dl, acetate) 360 mg (2 x 180 mg (400 unit)) PO DAILY 180 caps 1RF 90 days Refilled cyclobenzaprine 10 mg PO TID PRN 12 tabs 0RF muscle spasm 4 days M54.50 - Low back pain, unspecified cholecalciferol (vitamin D3) 25 mcg PO DAILY 90 caps 1RF 90 days Discontinued sennosides (Natural Senna Laxative) Discontinued Reason: Patient Completed Course 17.2 mg (2 x 8.6 mg) PO BEDTIME 180 tabs 3RF constipation K59.00 - Constipation, unspecified
[2025-01-16 10:46] VITALS: BP 114/60; PULSE 67; O2SAT 97; BMI 22.2
--- OUTSIDE RECORDS SUMMARY | 2025-01-16 11:46 | XMS_ITS | Encounter Summary ---
Author Organization [employer] [facility] Address [address] [place] [address] [address] [place] [address] Care Team Providers Care Carton Liner Name Role Phone Unavailable Primary Care Provider Unavailabl e Reason for Visit * Reason Onset Date Comments appt 10/18/2023 Encounter Details Date Type Department Care Team ([facility] st Contact Info) Description 10/18/2023 Telephone [facility] ADULT DENTAL [address], [place] [phone] Antonio Norris DDS [address], [place] [phone] appt Social History Tobacco Use Types Packs/Day [...]
== END 2025-01-16 11:16 | disposition home or self-care (01) ==
LOC: HO.HMCH 10:41
PROVIDERS: PCP Internal Medicine; Visit Provider Internal Medicine
DX: I10 Essential (primary) hypertension (principal); G30.0 Alzheimer's disease with early onset; F02.A3 Dementia in other diseases classified elsewhere, mild, with mood disturbance; F33.0 Major depressive disorder, recurrent, mild; E78.5 Hyperlipidemia, unspecified; E03.9 Hypothyroidism, unspecified; M54.50 Low back pain, unspecified; K59.04 Chronic idiopathic constipation

== ENCOUNTER → 2025-01-16 10:41 | Outpatient (BNVA) | payer OTHER, SELFPAY | PROVIDERS: PCP Internal Medicine; Visit Provider Internal Medicine | DX: I10 Essential (primary) hypertension (principal); E78.5 Hyperlipidemia, unspecified; E03.9 Hypothyroidism, unspecified; F41.9 Anxiety disorder, unspecified; M51.369 Other intervertebral disc degeneration, lumbar region without mention of lumbar back pain or lower extremity pain; F33.0 Major depressive disorder, recurrent, mild; G30.0 Alzheimer's disease with early onset; F02.A3 Dementia in other diseases classified elsewhere, mild, with mood disturbance; M54.50 Low back pain, unspecified; K59.04 Chronic idiopathic constipation | CPT/HCPCS: 96127; 99212 ==

== ENCOUNTER 2025-02-07 11:36 | Outpatient (REF) | payer OTHER, SELFPAY ==
[2025-02-07 13:31] LABS: Thyroid Stimulating Hormone 1.34 uIU/mL (0.32-4.0)
== END 2025-02-07 11:37 | disposition home or self-care (01) ==
LOC: HO.LAB 11:36
PROVIDERS: PCP Internal Medicine; Visit Provider Internal Medicine
DX: E03.9 Hypothyroidism, unspecified (principal)
CPT/HCPCS: 36415; 84443

== ENCOUNTER 2025-05-22 10:25 | Outpatient (AMB) | payer OTHER, SELFPAY ==
[2025-05-22 10:30] VITALS: BP 110/84; PULSE 64; RESP 16; TEMP 36.3; O2SAT 95; BMI 22.5
--- NOTE | 2025-05-22 10:30 | MHC.PC.OV ---
Vital Signs 05/22/25 10:30 Height 5 ft 5 in Weight 135 lb 6 oz BMI 22.5 BP 110/84 Blood Pressure Location Lt brachial Position Sitting Respiration 16 Pulse 64 Pulse Source Pulse Oximeter Temp 97.3 F Temp Source Temporal Artery Scan Pulse Oximetry (%) 95 Oxygen Delivery Method Room Air Intake Visit Reasons: thyroid Document Coordinator Required: No Accompanied by: Self / Same As Patient Allergies No Known Allergies (No Known Allergies*) Allergy (Verified 05/22/25 11:06) Medication List - Last Reconciled 05/22/25 by Dea Serrano MD aspirin (Adult Aspirin Regimen) 81 mg PO DAILY 90 days atorvastatin 40 mg PO BEDTIME 90 days back brace As directed cane As directed cholecalciferol (vitamin D3) 25 mcg PO DAILY 90 days cyclobenzaprine 10 mg PO TID PRN 4 days docusate sodium 100 mg PO DAILY PRN 90 days Knee brace As directed levothyroxine 150 mcg PO DAILY 90 days memantine 10 mg PO BID 90 days omeprazole 20 mg PO DAILY quetiapine mg PO sertraline 50 mg PO QAM Shower Chair As directed tamsulosin 0.4 mg PO DAILY trazodone 100 mg PO BEDTIME vitamin E (dl, acetate) 360 mg (2 x 180 mg (400 unit)) PO DAILY 90 days Tobacco use date assessed: 05/22/25 Fall risk assessment: No Falls in past year Last assessed Fall Risk: 05/22/25 Dental Screening Dental Screen Date: 05/22/25 Did you have a dental visit in the last 12 months?: No Did you have a dental problem in the last 6 months where you did not have access to dental care?: No Was dental information given to patient?: No HPI HPI Comments History of Present Illness Details The patient is a 75-year-old male presenting for a preoperative evaluation for his first cataract surgery scheduled for June 15. He has no known medication allergies. His current medications include baby aspirin, atorvastatin 40 mg, vitamin D, docusate for constipation, levothyroxine 150 mcg, memantine 10 mg for dementia, omeprazole for acid reflux, Seroquel, sertraline for depression, trazodone for sleep, and tamsulosin. His past medical history includes depression with anxiety, for which he sees a psychiatrist, and hypothyroidism, with his last thyroid test results noted to be good. His surgical history includes a mass biopsy in 2013, and he has had normal colonoscopies. He reports anxiety and fear regarding the upcoming surgery, leading to a prior cancellation, due to stories he heard from family. His last labs were in December and were noted to be good, and his thyroid levels were rechecked in February and were also normal. [facility] Medical History (Updated 05/22/25 @ 11:21 by Dea Serrano MD) Hearing loss Screening for prostate cancer Screening for diabetes mellitus Cough Dizziness Long-term use of aspirin therapy Glaucoma Insomnia Essential hypertension Surgical History History of biopsy History of colonoscopy Family History Father Prostate cancer Mother Chronic mental illness Osteoporosis Maternal Aunt Diabetes Hypertension Maternal Uncle Diabetes Hypertension Sister Liver failure Family/Other Chronic mental illness Brother No problems noted. Social History Housing: Apartment Alcohol intake: former Patient Tobacco Use Status: Former Tobacco user Tobacco use type: Cigarette e-Cigarette/Vaping Use: Never Used Second Hand Smoke Exposure: No service: No Current occupational status: disabled Cognitive needs: No Hearing needs: No Vision needs: No Questionnaire PHQ-9 Over the last 2 weeks, how often have you been bothered by any of the following problems? 1. Little interest or pleasure in doing things: more than half the days 2. Feeling down, depressed, or hopeless: several days 3. Trouble falling or staying asleep, or sleeping too much: not at all 4. Feeling tired or having little energy: several days 5. Poor appetite or overeating: more than half the days 6. Feeling bad about yourself - or that you are a failure or have let yourself or your family down: not at all 7. Trouble concentrating on things, such as reading the newspaper or watching television: more than half the days 8. Moving or speaking so slowly that other people could have noticed. Or the opposite - being so fidgety or restless that you have been moving around a lot more than usual: several days 9. Thoughts that you would be better off or of hurting yourself in some way: not at all Total score: 9 Depression Screening Interpretation: Positive Depression Screening Follow-up: Existing condition, In treatment, Community Mental Health Worker F/U and Follow-up Visit Requested Depression Screening Done: Yes 80250 - PHQ-9 Billing: Yes Source: Developed by Drs. Hank Craft, Mckayla Burgos, Martinez Sena and colleagues, with an educational taco from [employer]. Thrive Questionnaire Date Thrive assessed: 05/22/25 I am a: Patient What is your living situation today?: I have a steady place to live Within the past 12 months, did the food you bought not last and you didn't have the money to get more?: I choose not to answer this question Within the past 12 months, did you worry whether your food would run out before you got money to buy more?: I choose not to answer this question Do you have trouble paying for medicines?: No Do you have trouble getting transportation to medical appointments?: No Do you have trouble paying your heating and electricity bill?: No Do you have trouble taking care of your child, family member or friend?: I choose not to answer this question Do you have trouble with day-to-day activities such as bathing, preparing meals, shopping, managing finances, etc.?: I choose not to answer this question Are you currently unemployed and looking for a job?: No Are you interested in more education?: I choose not to answer this question Please select the resources that you would like help with: None Currently or been in a relationship where the following occur: No concerns reported THRIVE Score: 0 AUDIT C Alcohol Use Questionnaire (AUDIT-C) 1. How often do you have a drink containing alcohol?: Never Total Score: 0 Score Reviewed/Action Taken: No MURRAY-7 AMB Questionnaire MURRAY-7 Date MURRAY - 7 assessed: 05/22/25 Feeling nervous, anxious, or on edge: 1 = Several days Not being able to stop or control worryin = Several days Worrying too much about different things: 1 = Several days Trouble relaxin = Several days Being so restless that it is hard to sit still: 1 = Several days Becoming easily annoyed or irritable: 1 = Several days Feeling afraid as if something awful might happen: 0 = Not at all Total MURRAY-7 score (0-4 normal; 5-9 mild; 10-14 moderate; 15-21 severe): 6 Source: Developed by Drs. Hank Craft, Mckayla Burgos, Martinez Sena and colleagues, with an educational taco from [employer]. MURRAY-7 Assessment Billing MURRAY-7 Assessment Tool: MURRAY-7 Assessment 30303 Review of Systems Const All systems reviewed & are unremarkable except as noted in HPI and below Card Denies chest pain at rest, Denies chest pain with activity, Denies edema, Denies irregular heart rhythm, Denies claudication, Denies dyspnea, Denies dyspnea on exertion, Denies orthopnea, Denies paroxysmal nocturnal dyspnea and Denies slow heart rate Resp Denies cough, Denies dyspnea and Denies dyspnea on exertion GI Denies abdominal pain, Denies change in bowel habits, Denies excessive flatus, Denies nausea and Denies vomiting Physical exam (Primary Care) Vital Signs: Last Vital Signs Temp 97.3 F 05/22/25 10:30 Pulse 64 05/22/25 10:30 Resp 16 05/22/25 10:30 BP 110/84 05/22/25 10:30 Pulse Ox 95 05/22/25 10:30 Oxygen Delivery Method Room Air 05/22/25 10:30 BMI result Body Mass Index 22.5 Tobacco/Smoking Status: Tobacco use Status Tobacco use date assessed 05/22/25 05/22/25 10:31 Patient Tobacco Use Status Former Tobacco user 05/22/25 10:31 Tobacco use type Cigarette 05/22/25 10:31 e-Cigarette/Vaping Use Never Used 05/22/25 10:31 PHQ-9: PHQ-9 Score PHQ-9: Total score 9 05/22/25 11:09 Depression Screening Interpretation: Positive Depression Screening Follow-up: Existing condition, In treatment, Community Mental Health Worker F/U and Follow-up Visit Requested Thrive Assessment: Date of Thrive Assessment Date Thrive assessed 05/22/25 05/22/25 10:41 Currently or been in a relationship where the following occur: No concerns reported Resp Effort & Inspection: normal respiratory effort Auscultation: clear to auscultation bilaterally Cardio Jugular venous distension: no JVD Rate: regular rate Rhythm: regular rhythm Heart sounds: S1 normal heart sound present and S2 normal heart sound present Extrem General: Yes full ROM Coding Level of Care Code Est Pt Level 4 (58908) Diagnoses Pre-op evaluation Z01.818 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; 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 Dementia type: Alzheimer's Alzheimer's disease onset: early onset Dementia severity: mild Dementia behavioral or psychological symptom: with mood disturbance 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 Essential hypertension I10 Dyslipidemia E78.5 Additional Codes MURRAY-7 Assessment Billing - MURRAY-7 Assessment Tool: MURRAY-7 Assessment 19581 ([id number]) PHQ-9 - 54009 - PHQ-9 Billing: Yes ([id number]) Time Spent (min) 23 Assessment & Plan Assessment & Plan (1) Pre-op evaluation: Code(s): Z.818 - Encounter for other preprocedural examination Category: Medical (2) Dementia: Code(s): F03.90 - Unspecified dementia, unspecified severity, without behavioral disturbance, psychotic disturbance, mood disturbance, and anxiety Category: Medical Qualifiers: Dementia type: Alzheimer's Alzheimer's disease onset: early onset Dementia severity: mild Dementia behavioral or psychological symptom: with mood disturbance Qualified Code(s): G30.0 - Alzheimer's disease with early onset; F02.A3 - Dementia in other diseases classified elsewhere, mild, with mood disturbance (3) Mild recurrent major depression: Code(s): F33.0 - Major depressive disorder, recurrent, mild Category: Medical (4) Essential hypertension: Code(s): I10 - Essential (primary) hypertension Category: Medical (5) Dyslipidemia: Code(s): E78.5 - Hyperlipidemia, unspecified Category: Medical Plan Plan 1. Preoperative Evaluation An electrocardiogram and fasting labs will be ordered for preoperative clearance. The patient's blood pressure is noted to be excellent. The patient is scheduled for his first cataract surgery on June 15. The surgery is considered low-risk, with a minimal cardiovascular complication risk of 0.4%. 2. Depression with anxiety The patient expressed fear regarding the upcoming surgery, which led to a previous cancellation. Reassurance was provided that the procedure is very simple and complications are rare. Follow by Psychiatry. 3. Hypertension Continue antihypertensives. Blood pressure goal is equal or less than 130/80. 4. Hyperlipidemia Continue statins. Orders: Orders ECG 12 lead EKG Today Z01.818 - Encounter for other preprocedural examination Complete Blood Count Auto Diff Today D64.9 - Anemia, unspecified Thyroid Stimulating Hormone Today E03.9 - Hypothyroidism, unspecified Lipid Panel Today E78.5 - Hyperlipidemia, unspecified Comprehensive [place]. Panel Fast Today I10 - Essential (primary) hypertension
--- OUTSIDE RECORDS SUMMARY | 2025-05-22 13:07 | XMS_ITS | Encounter Summary ---
Author Organization [employer] [facility] Address [address] [place] [address] [address] [place] [address] Care Team Providers Care Car Icer Name Role Phone Unavailable Primary Care Provider Unavailabl e Reason for Visit * Reason Onset Date Comments appt 10/18/2023 Encounter Details Date Type Department Care Team ([facility] st Contact Info) Description 10/18/2023 Telephone [facility] ADULT DENTAL [address] [place], [place] [phone] Antonio Norris DDS [address] [place], [place] [phone] appt Social History Tobacco Use Types Packs/Day [...]
--- OUTSIDE RECORDS SUMMARY | 2025-05-22 13:07 | XMS_ITS | Clinical Summary ---
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
== END 2025-05-22 11:37 | disposition home or self-care (01) ==
LOC: HO.HMCH 10:25
PROVIDERS: PCP Internal Medicine; Visit Provider Internal Medicine
DX: Z01.818 Encounter for other preprocedural examination (principal); G30.0 Alzheimer's disease with early onset; F02.A3 Dementia in other diseases classified elsewhere, mild, with mood disturbance; F33.0 Major depressive disorder, recurrent, mild; I10 Essential (primary) hypertension; E78.5 Hyperlipidemia, unspecified

== ENCOUNTER → 2025-05-22 10:25 | Outpatient (BNVA) | payer OTHER, SELFPAY | PROVIDERS: PCP Internal Medicine; Visit Provider Internal Medicine | DX: Z01.818 Encounter for other preprocedural examination (principal); G30.0 Alzheimer's disease with early onset; F02.A3 Dementia in other diseases classified elsewhere, mild, with mood disturbance; F33.0 Major depressive disorder, recurrent, mild; I10 Essential (primary) hypertension; E78.5 Hyperlipidemia, unspecified | CPT/HCPCS: 96127; 99212 ==